=== PATIENT | male | born 1955 | race Caucasian/White ===

== ENCOUNTER 2018-07-19 07:29 | Day surgery (SDC) | payer OTHER, SELFPAY ==
[2018-07-19] VITALS (7 sets, daily range): BP systolic 87–151; BP diastolic 50–96; PULSE 51–63; RESP 12–18; TEMP 36.3–36.8; O2SAT 95–100; BMI 24.5
--- NOTE | 2018-07-19 08:17 | PCM.HP.STD ---
Problem List (1) Screening for intestinal cancer Status: Acute History of Present Illness Date of Admission: 07/19/18 The patient is a 62 year old M screening for intestinal cancer in the form of colonoscopy with possible biopsy or polypectomy. The patient enjoys good health. He denies any acute change of bowel habits. No bright red blood per rectum or melena. There is no family history of colon cancer or colon polyps. He has had a previous remote colonoscopy 11 years ago without acute findings. He is currently enjoying good health. Past Medical History Allergies No Known Allergies Allergy (Verified 07/15/18 14:45) Home Medications: Ambulatory Orders Medication Instructions Recorded Aspirin E.C. [Ecotrin] 81 mg PO DAILY@0800 10/17/13 Calcium Carbonate/Vitamin D3 1 each PO BID 10/17/13 [Calcium 600 + Vit D Tablet] [place]-3 Fatty Acids/Fish Oil [Fish 1 each PO DAILY 10/17/13 Oil 1,000 mg Capsule] Psyllium [Metamucil] 1 packet PO DAILY 10/17/13 Ramipril [Altace] 5 mg PO DAILY 10/17/13 Rosuvastatin Calcium [Crestor] 10 mg PO DAILY 10/17/13 Smoking Status: Never smoker Review of Systems Constitutional: Denies: Anorexia Eyes: Denies: Blurred vision Cardiovascular: Denies: Chest Pain, Claudication, Chest Pressure, Chest Tightness Respiratory: Denies: Cough, Shortness of Breath Gastrointestinal: Denies: Abdominal Pain, Constipation, Diarrhea Musculoskeletal: Denies: Leg Pain VTE Information - Inpt Only VTE Present on Admission: No Patient Problems: Active and Suspected Problems Screening for intestinal cancer (Acute) - Physical Exam General: Alert, Oriented x3, Cooperative, No apparent distress HEENT: Atraumatic Oral: Moist Mucosa Neck: Supple Lungs: Clear to auscultation Cardiovascular: Regular rate, Regular Rhythm Abdomen: Bowel Sounds Present, Soft, Non Tender Extremities: No clubbing Neurological: Cranial nerves II-XII grossly intact Vital Signs Temp Pulse Resp BP Pulse Ox 97.7 F L 63 12 127/85 H 99 07/19/18 08:05 07/19/18 08:05 07/19/18 08:05 07/19/18 08:05 07/19/18 08:05 Oxygen Delivery Method Room Air Weight: 166 lb Body Mass Index (BMI) 24.5 Assessment/Plan All Active Problems Screening for intestinal cancer (Acute) I plan to proceed with a colonoscopy with possible biopsy or polypectomy is indicated. He is aware of the technique, benefits, risks, alternatives. He has had an opportunity to ask and have questions answered. We will proceed at his discretion. Devaughn Jay M.D., F.A.C.S.
--- NOTE | 2018-07-19 08:30 | COLBX_PTH ---
PATIENT: BELINDA BUI LOC: EN U#:[id number] AGE/SX: 62/M ROOM: RE07/19/[address]: Dr. Devaughn Jay MD : 1955 BED: DIS: 07/19/2018 SPEC #: [id number] RECD: 07/19/18 09:59 STATUS: ANJEL BRI #: [id number] WOJCIECH: 07/19/18 08:[address]: Devaughn Jay DEPT: SURGICAL PATHOLOGY RECD BY: Flo Carty ENTERED: 07/19/18 12:26 SP TYPE: COLON BX OTHR DR: Dr. Gume Odonnell MD Tissues: A - Cecum, NOS B - Transverse colon C - Rectum, NOS Procedures: Surgery Specimen Level IV HEADER OPERATION: Colonoscopy ? open access (MOD) PRE-OP DIAGNOSIS: Screening TISSUE SUBMITTED: A ? Polyp cecum, B ? Biopsy of polyp proximal transverse, C ? Biopsy polyp rectum MICROSCOPIC DIAGNOSIS A. Cecal polyp, biopsy: Fragments of tubular adenoma. B. Proximal transverse colon polyp, biopsy: Fragments of tubular adenoma. C. Rectal polyp, biopsy: Fragments of tubular adenoma. AM:amara 07/20/18 MICROSCOPIC DESCRIPTION Slides are reviewed. GROSS DESCRIPTION A - Received in fixative is one container labeled with the patient's name and designated polyp cecum. The specimen consists of multiple irregular fragments of light pitts soft tissue that in aggregate measure 1 x 0.5 x 0.1 cm. The specimen is totally submitted in one cassette. B - Received in fixative is one container labeled with the patient's name and designated polyp transverse colon. The specimen consists of two irregular fragments of light pitts soft tissue that in aggregate measure 0.6 x 0.5 x 0.1 cm. The specimen is totally submitted in one cassette. C - Received in fixative is one container labeled with the patient's name and designated polyp rectum. The specimen consists of multiple irregular fragments of light pitts soft tissue that in aggregate measure 0.5 x 0.5 x 0.1 cm. The specimen is totally submitted in one cassette. / AM:amara 07/19/18 TC:5 CPT: 32481 x3
--- NOTE | 2018-07-19 08:50 | PCM.OPRPT ---
Problem List (1) Screening for intestinal cancer Status: Acute Report of Operation Date of Procedure: 07/19/18 Pre-Operative Diagnosis: Screening for intestinal cancer Post-Operative Diagnosis: Sessile polyp of the cecum. Sessile polyp of the proximal transverse colon. Sessile polyp of the rectum. Sigmoid diverticulosis Surgery/Procedure Performed:: Colonoscopy with hot snare polypectomy and cold forcep polypectomy Description of Surgical Findings:: Timeout and informed consent was obtained. 62-year-old gent was taken to the endoscopy suite. He was placed in a left lateral decubitus position. Throughout the procedure in aliquots he received total 100 mg term on 4.5 mg of Versed is intravenous sedation. Digital rectal exam performed. Normal anal tone. Mild hemorrhoidal findings. 2+ smooth prostate. No mass lesions. Flexible colonoscope inserted and advanced through a slightly tortuous sigmoid colon. The scope was advanced through the transverse colon which was rather long and lax. With transabdominal pressure and by placing the patient supine the scope was advanced to the cecum. Bowel prep was good. Cecum ileocecal valve area was nicely achieved. There was a sessile polyp on the antimesenteric border of the cecum. Hot snare was used to resect and retrieve this 1 cm diameter sessile polyp. Hemostasis was intact. The scope was then further withdrawn through the ascending colon and in the proximal transverse colon there was a diminutive 5 mm sessile polyp. I was not able to use a snare to eradicate that so I used cold forceps. Hemostasis again intact. The scope was further withdrawn. Minimal scattered diverticulosis identified. The scope was withdrawn to the descending and sigmoid colon were more diverticular disease was present but no evidence of acute inflammation. In the proximal rectum again there was a sessile 6 mm polyp. Benign appearance. Cold forceps were used to sample and eradicate this lesion. The scope was retroflexed and anorectal verge inspected some mild hemorrhoidal changes noted. Excess fluid and air was aspirated free the procedure was completed the patient tolerated it well. Impression Sessile polyps of the cecum and proximal transverse colon and rectum with pathology pending. Sigmoid diverticulosis. Pending pathology will recommend follow-up colonoscopy in 1-3 years The scope was inserted at 0826. The cecum was reached at 0832. The procedure was completed at 0845. Cc: Dr. Gume Jay M.D., F.A.C.S. Type of Anesthesia:: IV Sedation
== END 2018-07-19 09:40 | disposition home or self-care (01) ==
LOC: EN 07:37 → AC 07:44
PROVIDERS: Family Provider Family Medicine; PCP Family Medicine; Visit Provider Surgery
PROC: 0DJD8ZZ Inspection of Lower Intestinal Tract, Via Natural or Artificial Opening Endoscopic (ICD-10-PCS; CPT 45378; principal; 2018-07-19 08:25)
DX: Z12.11 Encounter for screening for malignant neoplasm of colon (principal); D12.0 Benign neoplasm of cecum; D12.3 Benign neoplasm of transverse colon; D12.8 Benign neoplasm of rectum; K57.30 Diverticulosis of large intestine without perforation or abscess without bleeding; K64.9 Unspecified hemorrhoids; Z79.82 Long term (current) use of aspirin; Z79.899 Other long term (current) drug therapy
CPT/HCPCS: 45380; 45385; 88305; 99152; 99153; J7120

== ENCOUNTER → 2018-08-01 11:14 | Outpatient (CLI) | payer OTHER, SELFPAY ==
[2018-08-01 13:26] LABS: ALB/GLOB Ratio 1.3 RATIO (0.9-2.4); AST(SGOT) 19 U/L (15-37); Alanine Aminotransfer ALT/SGPT 29 U/L (16-61); Albumin, Serum 4.1 g/dL (3.2-5.0); Alkaline Phosphatase 73 U/L (45-117); Anion Gap 11 (5-15); BUN 19 mg/dL (7-18); BUN/Creat Ratio 17.3 RATIO (10-20); Calcium,Total 8.9 mg/dL (8.5-10.1); Chloride 103 mmol/L (98-107); EST Glomerular Filtration Rate 72 mL/min (>60); Est Glom Filt Rate - Afr Amer 87 mL/min (>60); Globulin 3.2 g/dL (2.2-4.2); Glucose 74 mg/dL (74-106); PSA,Total - Annual Screen 1.07 ng/mL (0.00-4.00); Potassium 4.3 mmol/L (3.5-5.1); Protein, Total 7.3 g/dL (6.4-8.2); Sodium Level 142 mmol/L (136-145)
== END ==
PROVIDERS: Family Provider Family Medicine; PCP Family Medicine; Visit Provider Family Medicine
DX: I10 Essential (primary) hypertension (principal); N40.0 Benign prostatic hyperplasia without lower urinary tract symptoms
CPT/HCPCS: 36415; 80053; 84153; G0103

== ENCOUNTER → 2019-06-01 | Outpatient (CLI) | payer OTHER, SELFPAY ==
--- NOTE | 2019-06-01 07:31 | MRI_ITS ---
STUDY: MRI RIGHT KNEE REASON FOR EXAM: Male, 63 years old. TECHNIQUE: Standardized fat and water weighted pulse sequences were obtained in all 3 orthogonal planes. COMPARISON: None. FINDINGS: Meniscectomy change of the medial meniscus with maceration of the posterior horn with a suspected 3 cm trizonal flap tear extending to the inferior surface with a 4 mm cystic area within the posterior body which may represent a para meniscal cyst. Normal hyaline cartilage of the medial femorotibial compartment. Normal medial femoral condyle and tibial plateau. Associated medial capsulitis. Normal medial collateral ligamentous complex (MCL). Normal distal semimembranosus, gracilis and semitendinosus tendons. Normal lateral meniscus. Normal hyaline cartilage of the lateral femorotibial compartment. Normal lateral femoral condyle and tibial plateau. Normal proximal tibiofibular articulation. Normal lateral collateral (fibular) ligament. Normal popliteus tendon. Normal biceps femoris tendon. Normal anterior cruciate ligament (ACL). Normal posterior cruciate ligament (PCL). Normal congruent patellofemoral articulation. Normal hyaline cartilage of the patellofemoral compartment. Normal medial and lateral patellar retinaculum. Normal quadriceps tendon. Normal patellar tendon. Normal Hoffa's fat pad. There is a small volume joint effusion. The soft tissues are unremarkable. The otherwise visualized osseous structures are unremarkable. MRI/Lower Ext Joint Only (Routine) IMPRESSION: Meniscectomy change in the medial meniscus with maceration of the posterior horn with a 3 cm trizonal flap 3 tear extending to the inferior surface with a 4 mm parameniscal cyst either within or adjacent to the posterior body with medial capsulitis. However, the articular cartilage of the medial compartment is relatively preserved with no subchondral edema. Electronically Signed: Fermin Ortega MD at 9:47 EDT Tel , Service support ,
== END | disposition home or self-care (01) ==
LOC: MRI 07:17
PROVIDERS: Family Provider Family Medicine; PCP Family Medicine; Referring Provider Physician Assistant; Visit Provider Physician Assistant
DX: M25.561 Pain in right knee (principal)
CPT/HCPCS: 73721

== ENCOUNTER 2019-06-26 06:43 | Day surgery (SDC) | payer OTHER, SELFPAY ==
--- NOTE | 2019-06-15 07:15 | EKG12_ITS ---
Test Reason : PRE OP Blood Pressure : / mmHG Vent. Rate : 050 BPM Atrial Rate : 050 BPM P-R Int : 170 ms QRS Dur : 078 ms QT Int : 430 ms P-R-T Axes : 035 041 039 degrees QTc Int : 392 ms Sinus bradycardia Otherwise normal ECG When compared with ECG of 17-OCT-2013 13:01, No significant change was found Confirmed by CHIKI IRELAND, ERICKA ([id number]), business editor GWENDOLYN CARTER ([id number]) on 06/16/2019 9:44:13 AM Referred By: Tomy Linda Confirmed By:LÓPEZ MONET MD
[2019-06-15 07:25] LABS: Hematocrit 44.3 % (40-54); Hemoglobin 15.1 g/dL (13.0-16.5); Mean Corp Hgb Conc 34.1 g/dL (32-36); Mean Corpuscular Hgb 31.3 pg (27.0-32.0); Mean Corpuscular Volume 91.7 fL (80-94); Mean Platelet Vol. 9.4 fl (6.2-12.0); Platelet Count 207 K/mm3 (150-450); RBC Distribution Width CV 11.7 % (11.6-14.6); RBC Distribution Width SD 39.2 fl (35.1-43.9); Red Blood Count 4.83 M/mm3 (4.6-6.2); White Blood Count 5.9 K/mm3 (4.4-11.0)
[2019-06-15 07:43] LABS: Anion Gap 5 (5-15); BUN 20 mg/dL (7-18); BUN/Creat Ratio 17.5 RATIO (10-20); Calcium,Total 8.9 mg/dL (8.5-10.1); Chloride 105 mmol/L (98-107); Creatinine, Serum 1.14 mg/dL (0.70-1.30); EST Glomerular Filtration Rate 69 mL/min (>60); Est Glom Filt Rate - Afr Amer 84 mL/min (>60); Glucose 97 mg/dL (74-106); Potassium 4.3 mmol/L (3.5-5.1); Sodium Level 138 mmol/L (136-145)
[2019-06-26 08:11] VITALS: BP 141/75; PULSE 57; RESP 16; TEMP 36.8; O2SAT 99; BMI 26.6
[2019-06-26] MEDS: Cefazolin 2 GM in 0.9% Normal Saline 100 ML IV (10:35)
[2019-06-26] MEDS: Epinephrine (1 mg/ml) 1 MG/ML VIAL (11:11)
[2019-06-26] MEDS: Bupiv/Epi 0.25% 30 ML Vial (11:13)
--- NOTE | 2019-06-26 11:15 | OP.PCM_ITS ---
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 Procedure Description: The patient was greeted in the preoperative area. The [right ] knee was marked with surgical marker. Preoperative antibiotics were administered. The patient was then taken to the operating suite and placed in a supine position on operating room table. After adequate anesthesia was obtained and airway was secured a well-padded tourniquet was placed on patient's affected extremity. Leg was then prepped and draped in usual sterile fashion. Surgical timeout was performed and confirmed with all present and surgery was commenced. The anterolateral portal was established with a 15 blade scalpel and the diagnostic arthroscopy was begun. The patellofemoral joint was in good condition with focal grade 2 chondromalacia on the inferior pole of the patella. The medial compartment was entered and the medial portal was established. A probe was used to probe the medial meniscus. There was a multilayered tear of the posterior horn with an anteriorly based radial component. There was diffuse grade 2 chondromalacia of the medial femoral condyle. The ACL and PCL were probed and noted to be intact. The lateral compartment was entered and no pathology was noted. A partial medial meniscectomy was performed with straight and angled basket punches. The meniscal fragments were removed with a shaver and the shaver was used to shape and smooth the meniscus to a firm and stable rim. The shaver was then used to perform a chondroplasty on the MFC and the patella, removing any loose or delaminating cartilage. At this point all instruments were removed. Arthroscopic portals were closed in a standard fashion. 30 cc of 0.5% Marcaine was then injected into the knee. Well-padded nonadherent dressing was applied and secured with an Baldo wrap. The patient was taken to the recovery room in stable condition. Type of Anesthesia:: General Anesthesiologist: Jose Plascencia - Admit VTE Documentation VTE Present on Admission: No VTE Mechan Device Prophylaxis: SCD's, Thigh High BERNARD Hose VTE Pharm Prophylaxis ordered?: No Reason prophylaxis not ordered:: Treatment Not Indicated
[2019-06-26 11:26] VITALS: BP 136/69; BP 141/75; PULSE 71; RESP 16; TEMP 36.3; O2SAT 99
[2019-06-26 11:30] VITALS: BP 124/61; BP 141/75; PULSE 69; RESP 16; O2SAT 94
[2019-06-26 11:45] VITALS: BP 110/75; BP 141/75; PULSE 77; RESP 16; O2SAT 100
[2019-06-26] MEDS: HYDROcodone Bitartrate/Apap 5/325 Tablet PO (11:53)
[2019-06-26 12:02] VITALS: BP 141/75; PULSE 72; RESP 16; TEMP 36.1; O2SAT 96
[2019-06-26 12:54] VITALS: BP 141/75
== END 2019-06-26 13:05 | disposition home or self-care (01) ==
LOC: SDC 06:44 → AC 06:45
PROVIDERS: Family Provider Family Medicine; PCP Family Medicine; Referring Provider Orthopaedic Surgery; Visit Provider Orthopaedic Surgery
PROC: (CPT 29870; principal; 2019-06-26 09:30)
DX: S83.241A Other tear of medial meniscus, current injury, right knee, initial encounter (principal); X58.XXXA Exposure to other specified factors, initial encounter; Y92.9 Unspecified place or not applicable; I10 Essential (primary) hypertension; Z79.899 Other long term (current) drug therapy; Z79.82 Long term (current) use of aspirin; E78.00 Pure hypercholesterolemia, unspecified; R00.1 Bradycardia, unspecified
CPT/HCPCS: 29881; 36415; 80048; 85027; 93005; J7120; J2405

== ENCOUNTER → 2019-08-17 09:38 | Outpatient (CLI) | payer OTHER, SELFPAY ==
[2019-08-17 12:35] LABS: Vitamin D,25 Hydroxy 24.3 ng/mL (29.95-100.01)
[2019-08-17 12:43] LABS: ALB/GLOB Ratio 1.1 RATIO (0.9-2.4); AST(SGOT) 16 U/L (15-37); Alanine Aminotransfer ALT/SGPT 22 U/L (16-61); Alkaline Phosphatase 91 U/L (45-117); Anion Gap 8 (5-15); BUN 23 mg/dL (7-18); BUN/Creat Ratio 20.2 RATIO (10-20); Calcium,Total 8.9 mg/dL (8.5-10.1); Chloride 102 mmol/L (98-107); Creatinine, Serum 1.14 mg/dL (0.70-1.30); EST Glomerular Filtration Rate 69 mL/min (>60); Est Glom Filt Rate - Afr Amer 84 mL/min (>60); Globulin 3.5 g/dL (2.2-4.2); Glucose 71 mg/dL (74-106); PSA,Total - Annual Screen 1.01 ng/mL (0.00-4.00); Potassium 4.2 mmol/L (3.5-5.1); Protein, Total 7.5 g/dL (6.4-8.2); Sodium Level 135 mmol/L (136-145)
== END ==
PROVIDERS: Family Provider Family Medicine; PCP Family Medicine; Referring Provider Family Medicine; Visit Provider Family Medicine
DX: Z00.00 Encounter for general adult medical examination without abnormal findings (principal); E55.9 Vitamin D deficiency, unspecified; N40.0 Benign prostatic hyperplasia without lower urinary tract symptoms; I10 Essential (primary) hypertension
CPT/HCPCS: 36415; 80053; 82306; 84153; G0103

== ENCOUNTER 2019-11-07 07:17 | Day surgery (SDC) | payer OTHER, SELFPAY ==
[2019-11-07] VITALS (7 sets, daily range): BP systolic 100–153; BP diastolic 70–99; PULSE 60–69; RESP 16; TEMP 36.4–36.8; O2SAT 98–100; BMI 27.0
[2019-11-07] MEDS: Lactated Ringers 1,000 ML 100 ML IV (07:59)
--- NOTE | 2019-11-07 08:41 | PCM.HP.STD ---
Problem List (1) Personal history of colonic polyps Status: Acute History of Present Illness Date of Admission: 11/07/19 The patient is a 64 year old M presents for a colonoscopy. He presents via our open access program. He has a personal history of colon polyps. June 2018 I performed a colonoscopy form and there were multiple polyps of the cecum and the ascending colon. Pathology demonstrates that these were tubular adenomas. Over the past year he has had stable health. He denies chest pain denies abdominal pain no change in bowel habits. Past Medical History Allergies No Known Allergies Allergy (Verified 11/07/19 07:40) Home Medications: Ambulatory Orders Medication Instructions Recorded Psyllium [Metamucil] 1 packet PO DAILY 10/17/13 Ramipril [Altace] 5 mg PO DAILY 10/17/13 Rosuvastatin Calcium [Crestor] 10 mg PO DAILY 10/17/13 Cholecalciferol (Vitamin D3) 2,000 unit PO DAILY 11/06/19 [Vitamin D3] Smoking Status: Never smoker Tobacco Use: Non-smoker Review of Systems HEENT: Denies: Difficulty Swallowing Cardiovascular: Denies: Chest Pain Gastrointestinal: Denies: Abdominal Pain, Melena Endocrine: Denies: Change in Body Habitus VTE Information - Inpt Only VTE Present on Admission: No Patient Problems: Active and Suspected Problems Personal history of colonic polyps (Acute) - Physical Exam Vitals/I&O's: Vital Signs Temp Pulse Resp BP Pulse Ox 97.6 F L 66 16 153/82 H 98 11/07/19 07:42 11/07/19 07:42 11/07/19 07:42 11/07/19 07:42 11/07/19 07:42 Oxygen Delivery Method Room Air Weight: 183 lb Body Mass Index (BMI) 27.0 General: Alert, Oriented x3, Cooperative, No apparent distress Oral: Moist Mucosa Lungs: Clear to auscultation, Normal air movement Cardiovascular: Regular rate, Regular Rhythm Abdomen: Bowel Sounds Present, Soft, Non Tender Current Medications Lactated Ringer's () 1,000 mls @ 100 mls/hr IV .Q10H BALA Last Admin: 11/07/19 07:59 Dose: 100 mls/hr Documented by: Assessment/Plan All Active Problems Screening for intestinal cancer (Acute) Personal history of colonic polyps (Acute) Personal history of colon polyps. We will proceed with a colonoscopy with possible biopsy or polypectomy is indicated. He is aware of the technique, benefit, risks, alternatives. He has had an opportunity to ask and have questions answered. He presents via open access. We will proceed as noted. Devaughn Jay M.D., F.A.C.S.
--- NOTE | 2019-11-07 09:06 | OP.COLON_ITS ---
Patient Name: Travis Cerna Procedure Date: 11/07/2019 8:38 AM Date of : 1955 Age: 64 Procedure: Colonoscopy Indications: High risk colon cancer surveillance: Personal history of colonic polyps Providers: Devaughn Jay MD Referring MD: Venkata Odonnell Medicines: See the Anesthesia note for documentation of the administered medications Patient Profile: Last Colonoscopy: 1 year ago. Complications: No immediate complications. Procedure: Pre-Anesthesia Assessment: - Prior to the procedure, a History and Physical was performed, and patient medications and allergies were reviewed. The patient's tolerance of previous anesthesia was also reviewed. The risks and benefits of the procedure and the sedation options and risks were discussed with the patient. All questions were answered, and informed consent was obtained. Prior Anticoagulants: The patient has taken no previous anticoagulant or antiplatelet agents. ASA Grade Assessment: II - A patient with mild systemic disease. After reviewing the risks and benefits, the patient was deemed in satisfactory condition to undergo the procedure. After I obtained informed consent, the scope was passed under direct vision. Throughout the procedure, the patient's blood pressure, pulse, and oxygen saturations were monitored continuously. The Colonoscope was introduced through the anus and advanced to the cecum, identified by appendiceal orifice and ileocecal valve. The colonoscopy was performed without difficulty. The patient tolerated the procedure well. The quality of the bowel preparation was good. Scope In: 8:48:13 AM Scope Withdrawal Time 0 hours 6 minutes 49 seconds Scope Out: 8:59:34 AM Total Procedure Duration Time 0 hours 11 minutes 21 seconds Findings: The digital rectal exam findings include non-thrombosed external hemorrhoids, non-thrombosed internal hemorrhoids and internal hemorrhoids that prolapse with straining, but spontaneously regress to the resting position (Grade II). Multiple diverticula were found in the sigmoid colon. Impression: - Non-thrombosed external hemorrhoids, non-thrombosed internal hemorrhoids and internal hemorrhoids that prolapse with straining, but spontaneously regress to the resting position (Grade II) found on digital rectal exam. Normal prostate on palpation - Diverticulosis in the sigmoid colon. - No specimens collected. Recommendation: - Discharge patient to home. - Resume previous diet. - Continue present medications. - Repeat colonoscopy in 5 years for surveillance. Procedure Code(s): --- Professional --- 28220, Colonoscopy, flexible; diagnostic, including collection of specimen(s) by brushing or washing, when performed (separate procedure) Diagnosis Code(s): --- Professional --- Z86.010, Personal history of colonic polyps K64.1, Second degree hemorrhoids K64.4, Residual hemorrhoidal skin tags K57.30, Diverticulosis of large intestine without perforation or abscess without bleeding CPT copyright 2017 [employer]. All rights reserved. The codes documented in this report are preliminary and upon certified procedural coder review may be revised to meet current compliance requirements. Devaughn Jay MD 11/07/2019 9:06:04 AM This report has been signed electronically. Number of Addenda: 0 Note Initiated On: 11/07/2019 8:38 AM
== END 2019-11-07 09:42 | disposition home or self-care (01) ==
LOC: EN 07:19 → AC 07:21
PROVIDERS: Family Provider Family Medicine; PCP Family Medicine; Referring Provider Family Medicine; Visit Provider Surgery
PROC: 0DJD8ZZ Inspection of Lower Intestinal Tract, Via Natural or Artificial Opening Endoscopic (ICD-10-PCS; CPT 45378; principal; 2019-11-07 08:25)
DX: Z12.11 Encounter for screening for malignant neoplasm of colon (principal); K57.30 Diverticulosis of large intestine without perforation or abscess without bleeding; K64.1 Second degree hemorrhoids; K64.4 Residual hemorrhoidal skin tags; Z86.010 Personal history of colon polyps; I10 Essential (primary) hypertension; E78.00 Pure hypercholesterolemia, unspecified; Z79.899 Other long term (current) drug therapy
CPT/HCPCS: 45378; J7120

== ENCOUNTER → 2020-08-19 10:37 | Outpatient (CLI) | payer OTHER, SELFPAY ==
[2019-11-07 07:42] VITALS: BMI 27.0
[2020-08-19 12:46] LABS: Vitamin D,25 Hydroxy 44.9 ng/mL
[2020-08-19 13:18] LABS: ALB/GLOB Ratio 1.4 RATIO (0.9-2.4); AST(SGOT) 25 U/L (15-37); Alanine Aminotransfer ALT/SGPT 29 U/L (16-61); Albumin, Serum 4.2 g/dL (3.2-5.0); Alkaline Phosphatase 72 U/L (45-117); Anion Gap 6 (5-15); BUN 21 mg/dL (7-18); BUN/Creat Ratio 18.1 RATIO (10-20); Calcium,Total 8.9 mg/dL (8.5-10.1); Chloride 105 mmol/L (98-107); Creatinine, Serum 1.16 mg/dL (0.70-1.30); EST Glomerular Filtration Rate 67 mL/min (>60); Est Glom Filt Rate - Afr Amer 82 mL/min (>60); Globulin 3.1 g/dL (2.2-4.2); Glucose 78 mg/dL (74-106); PSA,Total - Annual Screen 0.95 ng/mL (0.00-4.00); Potassium 4.5 mmol/L (3.5-5.1); Protein, Total 7.3 g/dL (6.4-8.2); Sodium Level 139 mmol/L (136-145)
== END ==
PROVIDERS: PCP Family Medicine; Visit Provider Family Medicine
DX: E78.5 Hyperlipidemia, unspecified (principal); E55.9 Vitamin D deficiency, unspecified; N40.0 Benign prostatic hyperplasia without lower urinary tract symptoms
CPT/HCPCS: 36415; 80053; 82306; 84153; G0103

== ENCOUNTER → 2021-08-21 09:44 | Outpatient (CLI) | payer OTHER, SELFPAY ==
[2021-08-21 12:54] LABS: Vitamin D,25 Hydroxy 38.9 ng/mL
[2021-08-21 13:03] LABS: AST(SGOT) 21 U/L (15-37); Alanine Aminotransfer ALT/SGPT 36 U/L (16-61); Alkaline Phosphatase 78 U/L (45-117); Anion Gap 8 (5-15); BUN 20 mg/dL (7-18); BUN/Creat Ratio 18.9 RATIO (10-20); Chloride 104 mmol/L (98-107); Cholesterol 144 mg/dL (200); Creatinine, Serum 1.06 mg/dL (0.70-1.30); EST Glomerular Filtration Rate 75 mL/min (>60); Est Glom Filt Rate - Afr Amer 90 mL/min (>60); Glucose 83 mg/dL (74-106); High Density Lipoprotein 30 mg/dL; Potassium 4.3 mmol/L (3.5-5.1); Sodium Level 137 mmol/L (136-145); Triglycerides 183 mg/dL; Very Low Density Lipoprotein 37 mg/dL (5-40)
== END ==
PROVIDERS: PCP Family Medicine; Referring Provider Family Medicine; Visit Provider Family Medicine
DX: E78.5 Hyperlipidemia, unspecified (principal); N40.0 Benign prostatic hyperplasia without lower urinary tract symptoms; E55.9 Vitamin D deficiency, unspecified
CPT/HCPCS: 36415; 80053; 80061; 82306; 84153; G0103

== ENCOUNTER → 2022-08-25 | Outpatient (CLI) | payer OTHER, SELFPAY ==
[2022-08-25 12:18] LABS: Bacteria 0 SEEN /hpf (None Seen); Red Blood Cells-Urine 0 SEEN /hpf (0-5); Squamous Epithelial Cells - UA 0 SEEN /hpf (0-5); White Blood Cells 0 SEEN /hpf (0-5)
[2022-08-25 12:24] LABS: Vitamin D,25 Hydroxy 38.6 ng/mL
[2022-08-25 12:27] LABS: ALB/GLOB Ratio 1.2 RATIO (0.9-2.4); AST(SGOT) 19 U/L (15-37); Alanine Aminotransfer ALT/SGPT 31 U/L (16-61); Albumin, Serum 4.2 g/dL (3.2-5.0); Alkaline Phosphatase 80 U/L (45-117); Anion Gap 7 (5-15); BUN 21 mg/dL (7-18); BUN/Creat Ratio 16.7 RATIO (10-20); Calcium,Total 9.3 mg/dL (8.5-10.1); Chloride 105 mmol/L (98-107); Cholesterol 171 mg/dL (200); Creatinine, Serum 1.26 mg/dL (0.70-1.30); EST Glomerular Filtration Rate 61 mL/min (>60); Est Glom Filt Rate - Afr Amer 74 mL/min (>60); Globulin 3.5 g/dL (2.2-4.2); Glucose 79 mg/dL (74-106); High Density Lipoprotein 39 mg/dL; Potassium 4.7 mmol/L (3.5-5.1); Protein, Total 7.7 g/dL (6.4-8.2); Sodium Level 140 mmol/L (136-145); Triglycerides 135 mg/dL; Very Low Density Lipoprotein 27 mg/dL (5-40)
[2022-08-25 12:34] LABS: Color, Urine Yellow (Yellow); Glucose, Dipstick Normal (Normal); Ketone-Dipstick 150 mg/dl (Negative); Leukocyte Esterase-Dipstick Negative /ul (Negative); Nitrite-Dipstick Negative (Negative); Occult Blood-Urine Negative /ul (Negative); Protein-Dipstick 15 mg/dl (Negative); Specific Gravity, Urine 1.025 (1.002-1.030); Urine Bilirubin Dipstick Negative (Negative); Urine Clarity Sl. Cloudy (Clear); Urine Urobilinogen Normal (Normal)
[2022-08-25 12:49] LABS: Mucous, Urine 2+ /hpf (<or=2+)
[2022-08-25 12:50] LABS: Hyaline Cast 0-5 SEEN /lpf (0-5)
== END | disposition home or self-care (01) ==
PROVIDERS: PCP Family Medicine; Referring Provider Family Medicine; Visit Provider Family Medicine
DX: I10 Essential (primary) hypertension (principal); E55.9 Vitamin D deficiency, unspecified; N40.0 Benign prostatic hyperplasia without lower urinary tract symptoms; E78.5 Hyperlipidemia, unspecified; Z12.5 Encounter for screening for malignant neoplasm of prostate
CPT/HCPCS: 36415; 80053; 80061; 81001; 82306; 84153; G0103

== ENCOUNTER → 2023-10-05 | Outpatient (CLI) | payer OTHER, SELFPAY ==
[2023-10-05 13:10] LABS: Vitamin D,25 Hydroxy 34.9 ng/mL
[2023-10-05 13:43] LABS: ALB/GLOB Ratio 1.2 RATIO (0.9-2.4); AST(SGOT) 23 U/L (15-37); Alanine Aminotransfer ALT/SGPT 27 U/L (16-61); Alkaline Phosphatase 80 U/L (45-117); Anion Gap 10 (5-15); BUN 15 mg/dL (7-18); BUN/Creat Ratio 14.3 RATIO (10-20); Calcium,Total 8.6 mg/dL (8.5-10.1); Chloride 104 mmol/L (98-107); Cholesterol 160 mg/dL (200); Creatinine, Serum 1.05 mg/dL (0.70-1.30); EST Glomerular Filtration Rate 75 mL/min (>60); Est Glom Filt Rate - Afr Amer 91 mL/min (>60); Globulin 3.3 g/dL (2.2-4.2); Glucose 86 mg/dL (74-106); High Density Lipoprotein 43 mg/dL; PSA,Total - Annual Screen 1.35 ng/mL (0.00-4.00); Potassium 3.9 mmol/L (3.5-5.1); Protein, Total 7.3 g/dL (6.4-8.2); Sodium Level 137 mmol/L (136-145); Triglycerides 74 mg/dL; Very Low Density Lipoprotein 15 mg/dL (5-40)
== END | disposition home or self-care (01) ==
LOC: MFPLAB 10:00
PROVIDERS: PCP Family Medicine; Visit Provider Family Medicine
DX: E78.5 Hyperlipidemia, unspecified (principal); N40.0 Benign prostatic hyperplasia without lower urinary tract symptoms; E55.9 Vitamin D deficiency, unspecified
CPT/HCPCS: 36415; 80053; 80061; 82306; 84153; G0103

== ENCOUNTER → 2024-10-09 | Outpatient (CLI) | payer OTHER, SELFPAY ==
[2024-10-09 15:47] LABS: ALB/GLOB Ratio 1.3 RATIO (0.9-2.4); AST(SGOT) 18 U/L (15-37); Alanine Aminotransfer ALT/SGPT 24 U/L (16-61); Albumin, Serum 4.2 g/dL (3.2-5.0); Alkaline Phosphatase 88 U/L (45-117); Anion Gap 8 (5-15); BUN 17 mg/dL (7-18); BUN/Creat Ratio 16.5 RATIO (10-20); Calcium,Total 9.3 mg/dL (8.5-10.1); Chloride 105 mmol/L (98-107); Cholesterol 159 mg/dL (200); Creatinine, Serum 1.03 mg/dL (0.70-1.30); EST Glomerular Filtration Rate 76 mL/min (>60); Est Glom Filt Rate - Afr Amer 92 mL/min (>60); Globulin 3.3 g/dL (2.2-4.2); Glucose 76 mg/dL (74-106); High Density Lipoprotein 42 mg/dL; PSA,Total - Annual Screen 1.46 ng/mL (0.00-4.00); Potassium 4.1 mmol/L (3.5-5.1); Protein, Total 7.5 g/dL (6.4-8.2); Sodium Level 137 mmol/L (136-145); Triglycerides 87 mg/dL; Very Low Density Lipoprotein 17 mg/dL (5-40)
== END | disposition home or self-care (01) ==
LOC: MFPLAB 11:35
PROVIDERS: PCP Family Medicine; Visit Provider Family Medicine
DX: E78.5 Hyperlipidemia, unspecified (principal); Z12.5 Encounter for screening for malignant neoplasm of prostate
CPT/HCPCS: 36415; 80053; 80061; 84153; G0103

== ENCOUNTER 2025-01-29 08:14 | Day surgery (SDC) | payer OTHER, SELFPAY ==
[2025-01-29] VITALS (9 sets, daily range): BP systolic 98–144; BP diastolic 61–77; PULSE 18–65; RESP 16–18; TEMP 36.3–37.2; O2SAT 95–99; BMI 28.5
--- NOTE | 2025-01-29 08:29 | PCM.HP.STD ---
[facility] - General General Date of Admission: 01/29/25 Date of Service: 01/29/25 Chief Complaint: Screening colonoscopy HPI Kaya BUI, is a 69 M who presents today for surveillance colonoscopy. He has a personal history of polyps. His last colonoscopy was in 2019. [facility] Medical History Wears glasses Alcohol use High cholesterol Non-smoker Chronic cough History of edema HTN (hypertension) Home Medications ?Medication ?Instructions ?Recorded ?Last Taken ?Type psyllium husk (aspartame) 3.4 gram 1 packet PO DAILY 10/17/13 Unknown History oral powder packet (Metamucil Fiber Singles) ramipril 5 mg capsule 5 mg PO DAILY 10/17/13 11/07/19 History rosuvastatin 10 mg tablet 10 mg PO DAILY 10/17/13 Unknown History cholecalciferol (vitamin D3) 50 2,000 unit PO DAILY 11/06/19 Unknown History mcg (2,000 unit) capsule amlodipine 10 mg tablet 10 mg PO QDAY 12/06/24 Unknown History omega-3 fatty acids 1,000 mg 1,000 mg PO QDAY 12/06/24 Unknown History capsule ([place]-3) Allergy/AdvReac Type Severity Reaction Status Date / Time No Known Allergies Allergy Verified 12/06/24 12:49 Surgical History History of carpal tunnel release of both wrists History of arthroscopic knee surgery Hx of colonoscopy Social History household members: spouse current occupational status: employed Smoking Status: Never smoker substance use type: does not use ROS Constitutional Constitutional: Denies fatigue, fever(s), poor appetite, weight gain or weight loss Gastrointestinal Gastrointestinal: Denies belching, bloating, change in bowel habits, change in stool character, chewing difficulty, coffee ground emesis, constipation, cramping, diarrhea, dyspepsia, dysphagia, early satiety, excessive flatus, fecal incontinence, heartburn, hematemesis, hematochezia, hemorrhoids, loose stools, melena, nausea, odynophagia, rectal bleeding, tenesmus, vomiting or weight changes Physical Exam Const alert, oriented x3, no apparent distress and healthy appearing General Appearance: cooperative GI normal to inspection, nondistended, normoactive bowel sounds, soft to palpation, non-tender and non-distended Percussion: normal to percussion Rectal Exam: deferred Assessment & Plan Assessment/Plan (1) Personal history of colonic polyps: PLAN: He was explained alternatives, risk and benefits given understanding bleeding, infection, sepsis, perforation, need emergent urgent . He will have an ASA of 3.
--- NOTE | 2025-01-29 08:38 | PCM.PRE.AN2 ---
ASA Classification* ASA Classification ASA Classification: 2 Assessment & Plan Anesthesia* Anesthesia Assessment Anesthesia Assessment: Discussed sedation and/or anesthesia options, risks, benefits, and alternatives with patient/parents/legal guardian/POA. Questions invited. The patient/parents/legal guardian/POA seems to understand and agrees to proceed with anesthesia plan. Reviewed the physical assessment, medical history, allergy history and patient home medications list prior to surgery/procedure/anesthetic and documented any changes. Performed airway and anesthesia risk assessments. Anesthesia Type Anesthesia Type: MAC Anesthesia Focused Assessment* Temperature: 98.0 F Pulse Rate: 65 Blood Pressure: 144/77 Respiratory Rate: 18 Pulse Ox: 99 Airway Assessment Mouth opens: >3 cm Mallampati Score: II Focused Labs Anesthesia Preop lab: CBC WBC 5.9 K/mm3 (4.4-11.0) 06/15/19 07:09 06/15/19 RBC 4.83 M/mm3 (4.6-6.2) 06/15/19 07:09 06/15/19 Hgb 15.1 g/dL (13.0-16.5) 06/15/19 07:09 06/15/19 Hct 44.3 % (40-54) 06/15/19 07:09 06/15/19 Plt Count 207 K/mm3 (150-450) 06/15/19 07:09 06/15/19 CHEMISTRY Potassium 4.1 mmol/L (3.5-5.1) 10/09/24 11:37 10/09/24 Sodium 137 mmol/L (136-145) 10/09/24 11:37 10/09/24 BUN 17 mg/dL (7-18) 10/09/24 11:37 10/09/24 Creatinine 1.03 mg/dL (0.70-1.30) 10/09/24 11:37 10/09/24 Glucose 76 mg/dL (74-106) 10/09/24 11:37 10/09/24 COAG Pre-Assessment Diagnosis/Proposed Procedure Planned Operative Procedure(s): COLONOSCOPY Anesthesia History Anesthesia History - safety investigator: Anesthesia History - safety investigator Hx Hospitalization No 01/26/25 09:05 Any Problems With Anesthesia No 01/26/25 09:05 Cholinesterase deficiency No 01/26/25 09:05 You/Your Family Experience No 01/26/25 09:05 fever (hyperthermia) with Relationship Recent Exposure to Contagious No 01/29/25 08:32 Disease Does patient have nerve No 01/26/25 09:05 stimulator Patient instructed to have device shut off --Does patient have Pacemaker No 01/29/25 08:32 or ICD? When Was Last Pacemaker Check QUESTION #4 FULL TEXT: You/Your Family Experience fever (hyperthermia) with Anesthesia Last Oral Intake Last Oral intake: Last Oral Intake NPO since 03:30 01/29/25 08:32 Meds taken in AM with sips of water? Meds patient instructed to take am of surgery PONV PONV - safety investigator: PONV - safety investigator Female No 01/26/25 09:05 HX of Motion Sickness No 01/26/25 09:05 HX of N/V After Surgery No 01/26/25 09:05 Non-Smoker Yes 01/26/25 09:05 Duration of Surgery greater No 01/26/25 09:05 than 60 minutes Number of Risk Factors 1 01/26/25 09:05 PONV Score Low Risk 01/26/25 09:05 Height & Weight Height & Weight: Anesthesia: Height & Weight Height 5 ft 8 in 01/29/25 08:32 Weight: 85 kg 01/29/25 08:32 Body Mass Index (BMI) 28.5 01/29/25 08:32 Respiratory Assessment Respiratory Assessment - safety investigator: Respiratory Tract Infection Hx - safety investigator Hx Respiratory Tract Infection No 01/26/25 09:05 STOP Sleep Apnea STOP Sleep Apnea - safety investigator: STOP Sleep Apnea - safety investigator Hx Hypertension Yes 01/26/25 09:05 Hx Sleep Apnea No 01/26/25 09:05 CPAP No 11/07/19 09:03 BIPAP No 11/06/19 10:53 Do you snore loudly (louder No 01/26/25 09:05 than talking or can be heard Do you often feel tired/ No 01/26/25 09:05 fatigued/ sleepy during daytime? Has anyone observed you stop No 01/26/25 09:05 breathing during sleep? STOP Results Negative 01/26/25 09:05 QUESTION #5 FULL TEXT : Do you snore loudly (louder than talking or can be heard through closed doors)? Tobacco Use History Tobacco Use History - safety investigator: Tobacco Use History - safety investigator Tobacco Use Smoking Status Never smoker 01/26/25 09:05 Hx Tobacco Use No 01/26/25 09:05 Years Smoking Packs Smoked per Day Smoking Cessation Date was within the last 15 years Hx Smoking Cessation Date Hx Smoking Cessation Counseling Hematologic Medial History Hematologic Hx - safety investigator: Hematologic Medical Hx - poultry trimmer Hx of Blood Transfusion No 01/26/25 09:05 Hx of Transfusion in last 3 No 01/26/25 09:05 Months Date of Last Transfusion (if within last 3 months) Ever experience any problems No 01/26/25 09:05 with transfusion(s)? Specify any problems Hx of Preganancy in last 3 N/A 01/26/25 09:05 Months Nurse Filling Out Transfusion VLEHMAN 01/26/25 09:05 & Questions: Date: 01/26/25 01/26/25 09:05 Time: 09:01/26/25 09:05 Patient unable to answer at this time (ie. confused, unrespo /Reproduction History /Reproductive History - safety investigator: /Reproductive Hx- safety investigator Hx Now Gestational Age (in weeks): EDC: Hx Hx Para Hx Section SAB PFSH Medical History Wears glasses Alcohol use High cholesterol Non-smoker Chronic cough History of edema HTN (hypertension) Home Medications ?Medication ?Instructions ?Recorded ?Last Taken ?Type psyllium husk (aspartame) 3.4 gram 1 packet PO DAILY 10/17/13 01/26/25 History oral powder packet (Metamucil Fiber Singles) ramipril 5 mg capsule 5 mg PO DAILY 10/17/13 01/28/25 History rosuvastatin 10 mg tablet 10 mg PO DAILY 10/17/13 01/28/25 History cholecalciferol (vitamin D3) 50 2,000 unit PO DAILY 11/06/19 01/28/25 History mcg (2,000 unit) capsule amlodipine 10 mg tablet 10 mg PO QDAY 12/06/24 01/29/25 History omega-3 fatty acids 1,000 mg 1,000 mg PO QDAY 12/06/24 01/26/25 History capsule (Super [place]-3) Allergy/AdvReac Type Severity Reaction Status Date / Time No Known Allergies Allergy Verified 01/29/25 08:31 Surgical History History of carpal tunnel release of both wrists History of arthroscopic knee surgery Hx of colonoscopy Social History household members: spouse current occupational status: employed Smoking Status: Never smoker substance use type: does not use Review of Systems (Anesthesia) ROS Narrative System reviewed and no additional complaints, except as documented.
--- NOTE | 2025-01-29 09:15 | EGD_PTH ---
PATIENT: BELINDA BUI LOC: EN U#:[id number] AGE/SX: 69/M ROOM: RE01/29/[address]: Dr. Marcelo Epps DO : 1955 BED: DIS: 01/29/2025 SPEC #: [id number] RECD: 01/29/25 11:25 STATUS: ANJEL REXenia #: [id number] WOJCIECH: 01/29/25 09:[address]: Marcelo Epps DEPT: SURGICAL PATHOLOGY RECD BY: Claudy Rossi ENTERED: 01/29/25 11:27 SP TYPE: EGD BIOPSY AAMIR DR: Dr. Gume Odonnell MD Tissues: A - SPLENIC FLEXURE B - COLON BIOPSY Procedures: Surgery Specimen Level IV HEADER OPERATION: Colonoscopy with biopsy PRE-OP DIAGNOSIS: Personal history of colonic polyps TISSUE SUBMITTED: A- Splenic flexure polyp biopsy, B- Hepatic flexure polyp biopsy MICROSCOPIC DIAGNOSIS A: COLON POLYP AT SPLENIC FLEXURE, BIOPSY: * Tubular adenoma. B: COLON POLYP AT HEPATIC FLEXURE, BIOPSY: * Tubular adenoma. MICROSCOPIC DESCRIPTION Slides are reviewed. GROSS DESCRIPTION A. Received in fixative is one container labeled with the patient's name and designated Splenic flexure polyp biopsy. The specimen consists of multiple irregular fragments of light pitts soft tissue that in aggregate measure 1.4 x 0.4 x 0.2 cm. The specimen is totally submitted in one cassette. B. Received in fixative is one container labeled with the patient's name and designated Hepatic flexure polyp biopsy. The specimen consists of two irregular fragments of light pitts soft tissue that in aggregate measure 0.8 x 0.3 x 0.2 cm. The specimen is totally submitted in one cassette. MS/mr 01/29/2025 CPT:49853l7
--- NOTE | 2025-01-29 09:46 | OP.CCLET_ITS ---
01/29/2025 Venkata Odonnell [address] [place] [address] Re : Colonoscopy procedure for Travis Cerna Dear Dr. Odonnell This procedure was performed on Wednesday, January 29, 2025. My impressions and recommendations are as follows: Impressions : - Four 8 mm polyps at the splenic flexure and at the hepatic flexure, removed with a jumbo cold forceps. Resected and retrieved. - Diverticulosis in the recto-sigmoid colon, in the sigmoid colon and in the descending colon. - The examination was otherwise normal on direct and retroflexion views. Recommendations : - Discharge patient to home. - Resume previous diet. - Continue present medications. - Await pathology results. - Repeat colonoscopy in 5 years for surveillance. My findings are described in the full procedure note, which is enclosed. If I can be of further assistance, please feel free to contact me at . Sincerely, Marcelo Epps, 01/29/2025 9:45:59 AM This report has been signed electronically.
--- NOTE | 2025-01-29 09:46 | OP.COLON_ITS ---
Patient Name: Travis Cerna Procedure Date: 01/29/2025 9:21 AM Date of : 1955 Age: 69 Procedure: Colonoscopy Indications: High risk colon cancer surveillance: Personal history of colonic polyps Providers: Marcelo Epps DO Referring MD: Marcelo Epps DO Medicines: Monitored Anesthesia Care Patient Profile: This is a 69 year old male. Refer to note in patient chart for documentation of history and physical. Last Colonoscopy: 5 years ago. Complications: No immediate complications. Procedure: Pre-Anesthesia Assessment: - Prior to the procedure, a History and Physical was performed, and patient medications and allergies were reviewed. The patient is competent. The risks and benefits of the procedure and the sedation options and risks were discussed with the patient. All questions were answered and informed consent was obtained. Patient identification and proposed procedure were verified by the physician in the pre-procedure area. Mental Status Examination: alert and oriented. Airway Examination: normal oropharyngeal airway and neck mobility. Respiratory Examination: clear to auscultation. CV Examination: normal. Prophylactic Antibiotics: The patient does not require prophylactic antibiotics. Prior Anticoagulants: The patient has taken no anticoagulant or antiplatelet agents except for NSAID medication. ASA Grade Assessment: II - A patient with mild systemic disease. After reviewing the risks and benefits, the patient was deemed in satisfactory condition to undergo the procedure. The anesthesia plan was to use monitored anesthesia care (MAC). Immediately prior to administration of medications, the patient was re-assessed for adequacy to receive sedatives. The heart rate, respiratory rate, oxygen saturations, blood pressure, adequacy of pulmonary ventilation, and response to care were monitored throughout the procedure. The physical status of the patient was re-assessed after the procedure. After I obtained informed consent, the scope was passed under direct vision. Throughout the procedure, the patient's blood pressure, pulse, and oxygen saturations were monitored continuously. The adult colonoscope was introduced through the anus and advanced to the cecum, identified by appendiceal orifice and ileocecal valve. The colonoscopy was performed without difficulty. The patient tolerated the procedure well. The quality of the bowel preparation was adequate. Scope In: 9:28:14 AM Scope Withdrawal Time 0 hours 4 minutes 59 seconds Scope Out: 9:39:37 AM Total Procedure Duration Time 0 hours 11 minutes 23 seconds Findings: The perianal and digital rectal examinations were normal. Four sessile polyps were found in the splenic flexure and hepatic flexure. The polyps were 8 mm in size. These polyps were removed with a jumbo cold forceps. Resection and retrieval were complete. Verification of patient identification for the specimen was done. Estimated blood loss was minimal. A few small and large-mouthed diverticula were found in the recto-sigmoid colon, sigmoid colon and descending colon. The exam was otherwise without abnormality on direct and retroflexion views. Impression: - Four 8 mm polyps at the splenic flexure and at the hepatic flexure, removed with a jumbo cold forceps. Resected and retrieved. - Diverticulosis in the recto-sigmoid colon, in the sigmoid colon and in the descending colon. - The examination was otherwise normal on direct and retroflexion views. Recommendation: - Discharge patient to home. - Resume previous diet. - Continue present medications. - Await pathology results. - Repeat colonoscopy in 5 years for surveillance. Procedure Code(s): --- Professional --- 04646, Colonoscopy, flexible; with biopsy, single or multiple CPT copyright 2021 [employer]. All rights reserved. The codes documented in this report are preliminary and upon campus receptionist review may be revised to meet current compliance requirements. Marcelo Epps DO 01/29/2025 9:45:59 AM This report has been signed electronically. Number of Addenda: 0 Note Initiated On: 01/29/2025 9:21 AM
--- NOTE | 2025-01-29 09:47 | PCM.POST.ANE ---
Anesthesia: Postop Eval I Current Vital Signs Temperature: 97.4 F Pulse Rate: 58 Blood Pressure: 105/61 Respiratory Rate: 18 Pulse Ox: 95 Assessment Airway patent: Yes Spontaneous unlabored respirations: Yes nausea: No Vomiting: No Anesthesia Complication: No Fluid Hydration Crystalloid volume administer (ml): 10 Total IV fluid infused: 10 Progress Note Anesthesia document: Postop Eval 1 completed: Yes
--- NOTE | 2025-01-29 10:08 | POSTOPAN2_ITS ---
Anesthesia Postop Eval I Sum Postop Eval Completion status Anesthesia document: Postop Eval 1 completed: Yes Anesthesia Postop Eval I Summary Anesthesia Postop Eval I Summary: Anesthesia Postop Eval I: Assessment Summary Airway patent Yes 01/29/25 09:47 [email or web address] [email or web address] Spontaneous unlabored Yes 01/29/25 09:47 BARREL BURNER.[email or web address] respirations Mental status nausea No 01/29/25 09:47 BARREL BURNER.[email or web address] Vomiting No 01/29/25 09:47 BARREL BURNER.[email or web address] Anesthesia Postop Eval I: Fluid Summary Crystalloid volume administer 10 01/29/25 09:47 BARREL BURNER.[email or web address] (ml) Colloids volume administered ( ml) Blood Product volume administered (ml) Total IV fluid infused 10 01/29/25 09:47 BARREL BURNER.[email or web address] Anesthesia Postop Eval I: Summary Notes Anesthesia Complication No 01/29/25 09:47 BARREL [email or web address].CSIR Anesthesia Complication Comment: Post-operative progress note Anesthesia: Postop Eval II Evaluation Mental status: Awake Pain Level: 0 nausea: No Vomiting: No
--- NOTE | 2025-01-29 10:08 | PCM.POSTANE2 ---
Anesthesia Postop Eval I Sum Postop Eval Completion status Anesthesia document: Postop Eval 1 completed: Yes Anesthesia Postop Eval I Summary Anesthesia Postop Eval I Summary: Anesthesia Postop Eval I: Assessment Summary Airway patent Yes 01/29/25 09:47 TESTER ROCKET [email or web address] Spontaneous unlabored Yes 01/29/25 09:47 TESTER ROCKET [email or web address] respirations Mental status nausea No 01/29/25 09:47 TESTER ROCKET ENGINE.[email or web address] Vomiting No 01/29/25 09:47 TESTER ROCKET [email or web address] Anesthesia Postop Eval I: Fluid Summary Crystalloid volume administer 10 01/29/25 09:47 TESTER ROCKET [email or web address] (ml) Colloids volume administered ( ml) Blood Product volume administered (ml) Total IV fluid infused 10 01/29/25 09:47 TESTER ROCKET ENGINE.CSIR Anesthesia Postop Eval I: Summary Notes Anesthesia Complication No 01/29/25 09:47 TESTER ROCKET ENGINE.CSIR Anesthesia Complication Comment: Post-operative progress note Anesthesia: Postop Eval II Evaluation Mental status: Awake Pain Level: 0 nausea: No Vomiting: No
== END 2025-01-29 10:43 | disposition home or self-care (01) ==
LOC: EN 08:15 → AC 08:17
PROVIDERS: PCP Family Medicine; Referring Provider Family Medicine; Visit Provider Internal Medicine Gastroenterology
PROC: 0DJD8ZZ Inspection of Lower Intestinal Tract, Via Natural or Artificial Opening Endoscopic (ICD-10-PCS; CPT 45378; principal; 2025-01-29 09:10)
DX: Z12.11 Encounter for screening for malignant neoplasm of colon (principal); K63.5 Polyp of colon; K57.30 Diverticulosis of large intestine without perforation or abscess without bleeding; E78.00 Pure hypercholesterolemia, unspecified; I10 Essential (primary) hypertension; Z86.0100 Personal history of colon polyps, unspecified; Z79.899 Other long term (current) drug therapy
CPT/HCPCS: 45380; 88305; A4216; J2405

== ENCOUNTER 2025-10-10 09:06 | Outpatient (CLI) | payer OTHER, SELFPAY ==
--- OUTSIDE RECORDS SUMMARY | 2025-10-10 10:08 | XMS RPT_ITS | CCD ---
Author Organization [facility] Care Team Providers Care Film Historian Name Role Phone Gume Odonnell Referring Unavailable FriendMarcelo Consulting Unavailable FriendMarcelo Attending Unavailable Gume Odonnell Primary Care Unavailable Gume Odonnell Referring Unavailable Friend, Marcelo Attending Unavailable Gume Odonnell Primary Care Unavailable Gume Odonnell Primary Care Unavailable Gume Odonnell Attending Unavailable Gume Odonnell Primary Care Unavailable Margy Awan Attending Unavailable Belle IRELAND, Dr. Dunaway Primary Care Provider Dr. Gume Odonnell MD Attending Provider Margy Awan Attending Provider Unavailable Belle IRELAND, Dr. Dunaway Referring Provider Friend Dr. Marcelo GODOY Attending Provider Friend Dr. Marcelo GODOY Other Provider Medications Current Medications Medication Drug Class(es) Dates Sig (Normalized) Sig (Original) amLODIPine 10 mg oral tablet (1 source) Dihydropyridine Calcium Channel Abhinav Start: 12-06-2024 take 1 tablet by mouth once daily Amlodipine 10 mg tablet Active 10 mg PO daily December 06, 2024 1:00am cholecalciferol 0.05 mg oral capsule (2 sources) Vitamin D Start: 11-06-2019 take 1 capsule by mouth once daily Cholecalciferol (Vitamin D3) 2,000 UNIT capsule Active 2000 U PO DAILY November 06, 2019 1:00am Sanger-3 Fatty Acids (Super Sanger-3) 1,000 mg capsule (1 source) Start: 12-06-2024 take 3 capsules by mouth once daily Sanger-3 Fatty Acids (Super Sanger-3) 1,000 mg capsule Active 1000 mg PO daily December 06, 2024 1:00am psyllium 3400 mg powder for oral suspension (2 sources) Start: 10-17-2013 Psyllium Husk (Aspartame) (Metamucil) 1 PACKET powder in packet Active 1 NMA PO DAILY October 17, 2013 1:00am Start: 10-17-2013 Psyllium Husk (Aspartame) (Metamucil) 1 PACKET powder in packet Active 1 PACKET PO DAILY October 17, 2013 12:00am ramipril 5 mg oral capsule (2 sources) Angiotensin Converting Enzyme Inhibitor Start: 10-17-2013 take 1 capsule by mouth once daily Ramipril 5 MG capsule Active 5 mg PO DAILY October 17, 2013 1:00am rosuvastatin calcium 10 mg oral tablet (2 sources) HMG-CoA Reductase Inhibitor Start: 10-17-2013 take 1 tablet by mouth once daily Rosuvastatin 10 MG tablet Active 10 mg PO DAILY October 17, 2013 1:00am Problems Problem Classification Problem Date Documented Da te Episodic/Chronic Disorders of lipid metabolism (1 source) Hyperlipidemia, unspecified; Translations: [Hyperlipidemia, unspecified] Onset: 11-07-2024 Chronic Other and unspecified benign neoplasm (3 sources) History of polyp of colon; Translations: [Personal history of colonic polyps] 11-07-2019 Episodic Other screening for suspected conditions (not mental disorders or infectious disease) (4 sources) Patient encounter status; Translations: [Encounter for screening for malignant neoplasm of intestinal tract, unspecified] Onset: 02-07-2025 06-26-2019 Episodic Results Test Name Value Interpretation Reference Range Facility Colonoscopy Reporton 025 Colonoscopy Report [facility] Medical Records Department [address] [place] [address] Colonoscopy Report MR#: [id number] Acct: [id number] Name: TRAVIS CERNA YOCASTA Rep #: [id number] : 1955 69 From: Marcelo Friend PCP: Dr. Gume Odonnell MD Status:[facility] Patient Name: Travis Cerna Procedure Date: 01/29/2025 9:21 AM Date of : 1955 Age: 69 Procedure: Colonoscopy Indications: High risk colon cancer surveillance: Personal history of colonic polyps Providers: Marcelo Epps DO Referring MD: Marcelo Epps DO Medicines: Monitored Anesthesia Care Patient Profile: This is a 69 year old male. Refer to note in patient chart for documentation of history and physical. Last Colonoscopy: 5 years ago. Complications: No immediate complications. Procedure: Pre-Anesthesia Assessment: - Prior to the procedure, a History and Physical was performed, and patient medications and allergies were reviewed. The patient is competent. The risks and benefits of the procedure and the sedation options and risks were discussed with the patient. All questions were answered and informed consent was obtained. Patient identification and proposed procedure were verified by the physician in the pre-procedure area. Mental Status Examination: alert and oriented. Airway Examination: normal oropharyngeal airway and neck mobility. Respiratory Examination: clear to auscultation. CV Examination: normal. Prophylactic Antibiotics: The patient does not require prophylactic antibiotics. Prior Anticoagulants: The patient has taken no anticoagulant or antiplatelet agents except for NSAID medication. ASA Grade Assessment: II - A patient with mild systemic disease. After reviewing the risks and benefits, the patient was deemed in satisfactory condition to undergo the procedure. The anesthesia plan was to use monitored anesthesia care (MAC). Immediately prior to administration of medications, the patient was re-assessed for adequacy to receive sedatives. The heart rate, respiratory rate, oxygen saturations, blood pressure, adequacy of pulmonary ventilation, and response to care were monitored throughout the procedure. The physical status of the patient was re-assessed after the procedure. After I obtained informed consent, the scope was passed under direct vision. Throughout the procedure, the patient's blood pressure, pulse, and oxygen saturations were monitored continuously. The adult colonoscope was introduced through the anus and advanced to the cecum, identified by appendiceal orifice and ileocecal valve. The colonoscopy was performed without difficulty. The patient tolerated the procedure well. The quality of the bowel preparation was adequate. Scope In: 9:28:14 AM Scope Withdrawal Time 0 hours 4 minutes 59 seconds Scope Out: 9:39:37 AM Total Procedure Duration Time 0 hours 11 minutes 23 seconds Findings: The perianal and digital rectal examinations were normal. Four sessile polyps were found in the splenic flexure and hepatic flexure. The polyps were 8 mm in size. These polyps were removed with a jumbo cold forceps. Resection and retrieval were complete. Verification of patient identification for the specimen was done. Estimated blood loss was minimal. A few small and large-mouthed diverticula were found in the recto-sigmoid colon, sigmoid colon and descending colon. The exam was otherwise without abnormality on direct and retroflexion views. Impression: - Four 8 mm polyps at the splenic flexure and at the hepatic flexure, removed with a jumbo cold forceps. Resected and retrieved. - Diverticulosis in the recto-sigmoid colon, in the sigmoid colon and in the descending colon. - The examination was otherwise normal on direct and retroflexion views. Recommendation: - Discharge patient to home. - Resume previous diet. - Continue present medications. - Await pathology results. - Repeat colonoscopy in 5 years for surveillance. Procedure Code(s): --- Professional --- 45169, Colonoscopy, flexible; with biopsy, single or multiple CPT copyright 2021 [employer]. All rights reserved. The codes documented in this report are preliminary and upon business systems architect review may be revised to meet current compliance requirements. Marcelo Epps DO 01/29/2025 9:45:59 AM This report has been signed electronically. Number of Addenda: 0 Note Initiated On: 01/29/2025 9:21 AM 01/29/2546 Date Marcelo Epps DO Cosigner Signature: Date (if indicated) CC: Dr. Gume Odonnell MD; Marcelo Epps DO Date Dictated: 01/29/25920 Date Transcribed: Trim Attacher: MARY CARMEN Signed Normal [facility] MR/POSTOP.Aylin 01-29-2025 MR/POSTOP.[facility] Medical Records Department [address] [place] [address] Anesthesia Postop Eval I 01/29/25946 MR#: [id number] Acct: [id number] Name: TRAVIS CERNA Rep #: [id number] : 1955 69 From: Maria Del Rosario Lopez PCP: Dr. Gume Odonnell MD Status:REG SDC Y Race: C Location: [place] [address] Anesthesia: Postop Eval I Current Vital Signs Temperature: 97.4 F Pulse Rate: 58 Blood Pressure: 105/61 Respiratory Rate: 18 Pulse Ox: 95 Assessment Airway patent: Yes Spontaneous unlabored respirations: Yes nausea: No Vomiting: No Anesthesia Complication: No Fluid Hydration Crystalloid volume administer (ml): 10 Total IV fluid infused: 10 Progress Note Anesthesia document: Postop Eval 1 completed: Yes 01/29/25946 Date Maria Del Rosario Lopez Cosigner Signature: Date CC: Signed Normal [facility] MR/[id number] 01-29-2025 [facility] Medical Records Department [address] [place] [address] Anesthesia Postop Eval II 01/29/25 1008 MR#: [id number] Acct: [id number] Name: TRAVIS CERNA Rep #: [id number] : 1955 69 From: Jose Plascencia MD PCP: Dr. Gume Odonnell MD Status:REG SDC Y Race: C Location: [place] [address] Anesthesia Postop Eval I Sum Postop Eval Completion status Anesthesia document: Postop Eval 1 completed: Yes Anesthesia Postop Eval I Summary Anesthesia Postop Eval I Summary: Anesthesia Postop Eval I: Assessment Summary Airway patent Yes 01/29/25 09:47 FORESTRY LABORER.CSIR Spontaneous unlabored Yes 01/29/25 09:47 FORESTRY LABORER.CSIR respirations Mental status nausea No 01/29/25 09:47 FORESTRY LABORER.CSIR Vomiting No 01/29/25 09:47 FORESTRY LABORER.CSIR Anesthesia Postop Eval I: Fluid Summary Crystalloid volume administer 10 25 09:47 FORESTRY LABORER.CSIR (ml) Colloids volume administered ( ml) Blood Product volume administered (ml) Total IV fluid infused 01/29/25 09:47 FORESTRY LABORER.CSIR Anesthesia Postop Eval I: Summary Notes Anesthesia Complication No 01/29/25 09:47 FORESTRY LABORER.CSIR Anesthesia Complication Comment: Post-operative progress note Anesthesia: Postop Eval II Evaluation Mental status: Awake Pain Level: 0 nausea: No Vomiting: No 01/29/25 1008 Date Jose Pierce Signature: Date CC: Signed Normal [facility] Surgery Specimen Level Lizzy 01-29-2025 Surgery Specimen Level IV Patient Age/Sex Location Account Attending Physician TRAVIS CERNA 69/M EN [id number] Marcelo Epps DO Specimen: [id number] Received: 01/29/25 Status: ANJEL Vences Num: [id number] Spec Type: EGD BIOPSY Subm Dr: Marcelo Epps, DO HEADER OPERATION: Colonoscopy with biopsy PRE-OP DIAGNOSIS: Personal history of colonic polyps TISSUE SUBMITTED: A- Splenic flexure polyp biopsy, B- Hepatic flexure polyp biopsy MICROSCOPIC DIAGNOSIS A: COLON POLYP AT SPLENIC FLEXURE, BIOPSY: * Tubular adenoma. B: COLON POLYP AT HEPATIC FLEXURE, BIOPSY: * Tubular adenoma. MICROSCOPIC DESCRIPTION Slides are reviewed. GROSS DESCRIPTION A. Received in fixative is one container labeled with the patient's name and designated Splenic flexure polyp biopsy. The specimen consists of multiple irregular fragments of light pitts soft tissue that in aggregate measure 1.4 x 0.4 x 0.2 cm. The specimen is totally submitted in one cassette. B. Received in fixative is one container labeled with the patient's name and designated Hepatic flexure polyp biopsy. The specimen consists of two irregular fragments of light pitts soft tissue that in aggregate measure 0.8 x 0.3 x 0.2 cm. The specimen is totally submitted in one cassette. MS/mr 01/29/2025 CPT:38788c7 Patient Age/Sex Location Account Attending Physician TRAVIS CERNA 69/M EN [id number] Marcelo Epps DO Signed (signatur e on file) Dr. Malu Mckeon MD 01/31/25 1528 Normal [facility] Comment on above: Performed By: #### P SUIV #### [facility] [place], [place], [id number] Albumin to globulin ratioOrd ered By: Gume Odonnell on 10-09-2024 Albumin/Globulin [Mass ratio] 1.3 {ratio} 0.9-2.4 [facility] Bilirubin, totalOrdered By: Gume Odonnell on 10-09-2024 Bilirubin [Mass/Vol] 0.80 mg/dL 0.20-1.00 [facility] Comment on above: For patients on eltr ombopag therapy, use of Dimension [place] TBIL is not recommended. Blood urea nitrogen (BUN)/cr eatinine ratioOrdered By: Gume Odonnell on 10-09-2024 Urea nitrogen/Creatinine [Mass ratio] 16.5 mg/mg 10-20 [facility] Carbon dioxide measurementOr dered By: Gume Odonnell on 10-09-2024 CO2 [Moles/Vol] 24.0 mmol/L 21.0-32.0 [facility] Chloride measurementOrdered By: Gume Odonnell on 10-09-2024 Chloride [Moles/Vol] 105 mmol/L 98-107 [facility] Comprehensive Metabolic Prof ilon 10-09-2024 Albumin [Mass/Vol] 4.2 g/dL Normal 3.2-5.0 [facility] Comment on above: Order Comment: Order Date: 05/11/24 Order Info: [id number] - CMP Order Info: [id number] - LIPID Order Info: [id number] - PSA Performed By: #### L 500.4100, L501.9910, L500.4050 #### [facility] [address] [place], [address] Albumin/Globulin [Mass ratio] 1.3 {ratio} Normal 0.9-2.4 [facility] Comment on above: Order Comment: Order Date: 05/11/24 Order Info: [id number] - CMP Order Info: [id number] - LIPID Order Info: [id number] - PSA Performed By: #### L 500.4100, L501.9910, L500.4050 #### [facility] [address] [place], [address] ALK P 88 U/L Normal 45-117 [facility] Comment on above: Order Comment: Order Date: 05/11/24 Order Info: [id number] - CMP Order Info: [id number] - LIPID Order Info: [id number] - PSA Performed By: #### L 500.4100, L501.9910, L500.4050 #### [facility] [address] [place], [address] ALT [Catalytic activity/Vol] 24 U/L Normal 16-61 [facility] Comment on above: Order Comment: Order Date: 05/11/24 Order Info: 785-1 - CMP Order Info: [id number] - LIPID Order Info: 285-1 - PSA Performed By: #### L 500.4100, L501.9910, L500.4050 #### [facility] [address] [place], [address] AST [Catalytic activity/Vol] 18 U/L Normal 15-37 [facility] Comment on above: Order Comment: Order Date: 05/11/24 Order Info: [id number] - CMP Order Info: [id number] - LIPID Order Info: [id number] - PSA Performed By: #### L 500.4100, L501.9910, L500.4050 #### [facility] [address] [place], [address] Bilirubin [Mass/Vol] 0.80 mg/dL Normal 0.20-1.00 [facility] Comment on above: Order Comment: Order Date: 05/11/24 Order Info: 785-11 - CMP Order Info: [id number] - LIPID Order Info: [id number] - PSA Result Comment: For patients on eltrombopag therapy, use of Dimension [place] TBIL is not recommended. Performed By: #### L 500.4100, L501.9910, L500.4050 #### [facility] [address] [place], [address] BUN/CRE 16.5 RATIO Normal 10-20 [facility] Comment on above: Order Comment: Order Date: 05/11/24 Order Info: 07 - CMP Order Info: [id number] - LIPID Order Info: 285-1 - PSA Performed By: #### L 500.4100, L501.9910, L500.4050 #### [facility] [address] [place], [address] CA,Total 9.3 mg/dL Normal 8.5-10.1 [facility] Comment on above: Order Comment: Order Date: 05/11/24 Order Info: 785-1 - CMP Order Info: [id number] - LIPID Order Info: 1 - PSA Performed By: #### L 500.4100, L501.9910, L500.4050 #### [facility] [address] [place], [address] Chloride [Moles/Vol] 105 mmol/L Normal 98-107 [facility] Comment on above: Order Comment: Order Date: 05/11/24 Order Info: 785- - CMP Order Info: - LIPID Order Info: [id number] - PSA Performed By: #### L 500.4100, L501.9910, L500.4050 #### [facility] [address] [place], [address] CO2 [Moles/Vol] 24.0 mmol/L Normal 21.0-32.0 [facility] Comment on above: Order Comment: Order Date: 05/11/24 Order Info: 785-11 - CMP Order Info: [id number] - LIPID Order Info: [id number] - PSA Performed By: #### L 500.4100, L501.9910, L500.4050 #### [facility] [address] [place], [address] Creatinine [Mass/Vol] 1.03 mg/dL Normal 0.70-1.30 [facility] Comment on above: Order Comment: Order Date: 05/11/24 Order Info: 07-1 - CMP Order Info: [id number] - LIPID Order Info: [id number] - PSA Result Comment: The validity of the calculated GFR GFRAA in patients over 70 years has not been determined. Clinical correlation is essential. Performed By: #### L 500.4100, L501.9910, L500.4050 #### [facility] [address] [place], [address] EST GFR - AA 92 mL/min Normal >60 [facility] Comment on above: Order Comment: Order Date: 05/11/24 Order Info: 785-11 - CMP Order Info: - LIPID Order Info: [id number] - PSA Result Comment: Afri can [place] GFR Calc Performed By: #### L 500.4100, L501.9910, L500.4050 #### [facility] [address] [place], [address] GAP 8 Normal 5-15 [facility] Comment on above: Order Comment: Order Date: 05/11/24 Order Info: 785-11 - CMP Order Info: - LIPID Order Info: [id number] - PSA Performed By: #### L 500.4100, L501.9910, L500.4050 #### [facility] [address] [place], [address] GFR/1.73 sq M.predicted among non-blacks MDRD (S/P/Bld) [Vol rate/Area] 76 mL/min/{1.73_m2} Normal >60 [facility] Comment on above: Order Comment: Order Date: 05/11/24 Order Info: 785-11 - CMP Order Info: - LIPID Order Info: [id number] - PSA Result Comment: Non- GFR Calc Performed By: #### L 500.4100, L501.9910, L500.4050 #### [facility] [address] [place], [address] Globulin (S) [Mass/Vol] 3.3 g/dL Normal 2.2-4.2 [facility] Comment on above: Order Comment: Order Date: 05/11/24 Order Info: 785-11 - CMP Order Info: [id number] - LIPID Order Info: [id number] - PSA Performed By: #### L 500.4100, L501.9910, L500.4050 #### [facility] [address] [place], [address] Glucose [Mass/Vol] 76 mg/dL Normal 74-106 [facility] Comment on above: Order Comment: Order Date: 05/11/24 Order Info: 785-11 - CMP Order Info: [id number] - LIPID Order Info: 285-1 - PSA Performed By: #### L 500.4100, L501.9910, L500.4050 #### [facility] [address] [place], [address] Potassium [Moles/Vol] 4.1 mmol/L Normal 3.5-5.1 [facility] Comment on above: Order Comment: Order Date: 05/11/24 Order Info: 785-11 - CMP Order Info: [id number] - LIPID Order Info: [id number] - PSA Performed By: #### L 500.4100, L501.9910, L500.4050 #### [facility] [address] [place], [address] Sodium [Moles/Vol] 137 mmol/L Normal 136-145 [facility] Comment on above: Order Comment: Order Date: 05/11/24 Order Info: 785-11 - CMP Order Info: [id number] - LIPID Order Info: [id number] - PSA Performed By: #### L 500.4100, L501.9910, L500.4050 #### [facility] [address] [place], [address] T PROT 7.5 g/dL Normal 6.4-8.2 [facility] Comment on above: Order Comment: Order Date: 05/11/24 Order Info: 785-11 - CMP Order Info: [id number] - LIPID Order Info: [id number] - PSA Performed By: #### L 500.4100, L501.9910, L500.4050 #### [facility] [address] [place], [address] Urea nitrogen [Mass/Vol] 17 mg/dL Normal 7-18 [facility] Comment on above: Order Comment: Order Date: 05/11/24 Order Info: 0786-1 - CMP Order Info: [id number] - LIPID Order Info: [id number] - PSA Performed By: #### L 500.4100, L501.9910, L500.4050 #### [facility] [address] [place], [place], [address] Estimated glomerular filtrat ion rate (GFR) AmericanOrdered By: Gume Odonnell on 10-09-2024 Estimated GFR (MDRD) Amer 92 mL/min >60 [facility] Comment on above: GFR Calc Glomerular filtration rate ( GFR) estimationOrdered By: Gume Odonnell on 10-09-2024 Estimated GFR (MDRD) Non-Af Amer 76 mL/min >60 [facility] Comment on above: Non- GFR Calc Glucose measurementOrdered B y: Gume Odonnell on 10-09-2024 Glucose [Mass/Vol] 76 mg/dL 74-106 [facility] High density lipoprotein (HD L) measurementOrdered By: Gume Odonnell on 10-09-2024 Cholesterol in HDL [Mass/Vol] 42 mg/dL >40 [facility] Comment on above: The drugs N-Acetylcy steine and Metamizole may falsely depress this assay. Reference Range HDL <40 mg/dL Low HDL Cholesterol HDL >or= 60 mg/dL High HDL Cholesterol Laboratory - Chemistry and C hemistry - challengeOrdered By: Gume Odonnell on 10-09-2024 AST [Catalytic activity/Vol] 18 U/L 15-37 [facility] Lipid Profileon 10-09-2024 Cholesterol [Mass/Vol] 159 mg/dL Normal 200 [facility] Comment on above: Order Comment: Order Date: 05/11/24 Order Info: 0786-1 - CMP Order Info: [id number] - LIPID Order Info: [id number] - PSA Result Comment: <200 mg/dL Desirable 200-240 mg/dL Borderline >240 mg/dL High Risk Performed By: #### L 500.4100, L501.9910, L500.4050 #### [facility] [address] [place], [address] Cholesterol in HDL [Mass/Vol] 42 mg/dL Normal [facility] Comment on above: Order Comment: Order Date: 05/11/24 Order Info: 07 - CMP Order Info: [id number] - LIPID Order Info: [id number] - PSA Result Comment: The drugs N-Acetylcysteine and Metamizole may falsely depress this assay. Reference Range HDL <40 mg/dL Low HDL Cholesterol HDL >or= 60 mg/dL High HDL Cholesterol Performed By: #### L 500.4100, L501.9910, L500.4050 #### [facility] [address] [place], [address] Cholesterol in LDL [Mass/Vol] 100 mg/dL Normal 0-130 [facility] Comment on above: Order Comment: Order Date: 05/11/24 Order Info: 07 - CMP Order Info: [id number] - LIPID Order Info: [id number] - PSA Performed By: #### L 500.4100, L501.9910, L500.4050 #### [facility] [address] [place], [address] Cholesterol in VLDL [Mass/Vol] 17 mg/dL Normal 5-40 [facility] Comment on above: Order Comment: Order Date: 05/11/24 Order Info: 0786 - CMP Order Info: [id number] - LIPID Order Info: [id number] - PSA Performed By: #### L 500.4100, L501.9910, L500.4050 #### [facility] [address] [place], [address] Triglyceride [Mass/Vol] 87 mg/dL Normal [facility] Comment on above: Order Comment: Order Date: 05/11/24 Order Info: [id number]- - CMP Order Info: [id number] - LIPID Order Info: [id number] - PSA Result Comment: The drugs N-Acetylcysteine and Metamizole may falsely depress this assay. Serum Triglycerides Reference Interval Normal <150 mg/dL Borderline high 150 - 199 mg/dL High 200 - 499 mg/dL Very High > or = 500 mg/dL Performed By: #### L 500.4100, L501.9910, L500.4050 #### [facility] [address] [place], [place], [address] Low density lipoprotein (LDL ) cholesterol measurementOrdered By: Gume Odonnell on 10-09-2024 Cholesterol in LDL [Mass/Vol] 100 mg/dL 0-130 [facility] PSA,Total - Annual Screenon 10-09-2024 PSA,TOT SCREEN 1.46 ng/mL Normal 0.00-4.00 [facility] Comment on above: Order Comment: Order Date: 05/11/24 Order Info: 0786-1 - CMP Order Info: [id number] - LIPID Order Info: [id number] - PSA Result Comment: This test was performed using the TPSA assay method for the [employer]xim chemistry system. Values obtained with different assay methods cannot be used interchangably. When changing PSA assays in the course of monitoring a patient, additional sequential testing should be carried out to confirm baseline values. Performed By: #### L 500.4100, L501.9910, L500.4050 #### [facility] [address] [place], [address] Potassium measurementOrdered By: Gume Odonnell on 10-09-2024 Potassium [Moles/Vol] 4.1 mmol/L 3.5-5.1 [facility] Screening prostate specific antigen (PSA) measurementOrdered By: Gume Odonnell on 10-09-2024 Prostate Specific Antigen Screen 1.46 ng/mL 0.00-4.00 [facility] Comment on above: This test was perfor med using the TPSA assay method for the[employer]maxim chemistry system. Values obtained with differentassay methods cannot be used interchangably.When changing PSA assays in the course of monitoring apatient, additional sequential testing should be carriedout to confirm baseline values. Serum anion gap measurementO rdered By: Gume Odonnell on 10-09-2024 Anion gap [Moles/Vol] 8 mmol/L 5-15 [facility] Serum globulin measurementOr dered By: Gume Odonnell on 10-09-2024 Globulin (S) [Mass/Vol] 3.3 g/dL 2.2-4.2 [facility] Serum or plasma alanine cabrera otransferase (ALT) measurementOrdered By: Gume Odonnell on 10-09-2024 ALT [Catalytic activity/Vol] 24 U/L 16-61 [facility] Serum or plasma albumin machelle urement (mass/volume)Ordered By: Gume Odonnell on 10-09-2024 Albumin [Mass/Vol] 4.2 g/dL 3.2-5.0 [facility] Serum or plasma alkaline patricia sphatase measurementOrdered By: Gume Odonnell on 10-09-2024 ALP [Catalytic activity/Vol] 88 U/L 45-117 [facility] Serum or plasma calcium machelle urement (mass/volume)Ordered By: Gume Odonnell on 10-09-2024 Calcium [Mass/Vol] 9.3 mg/dL 8.5-10.1 [facility] Serum or plasma cholesterol measurement (mass/volume)Ordered By: Gume Odonnell on 10-09-2024 Cholesterol [Mass/Vol] 159 mg/dL <200 [facility] Comment on above: <200 mg/dL Desirable 200-240 mg/dL Borderline >240 mg/dL High Risk Serum or plasma creatinine m easurement (mass/volume)Ordered By: Gume Odonnell on 10-09-2024 Creatinine [Mass/Vol] 1.03 mg/dL 0.70-1.30 [facility] Comment on above: The validity of the calculated GFR & GFRAA in patients over 70 years has not been determined. Clinical correlation is essential. Serum or plasma urea nitroge n measurement (mass/volume)Ordered By: Gume Odonnell on 10-09-2024 Urea nitrogen [Mass/Vol] 17 mg/dL 7-18 [facility] Sodium levelOrdered By: Rj Odonnell on 10-09-2024 Sodium [Moles/Vol] 137 mmol/L 136-145 [facility] Total proteinOrdered By: Bert Odonnell on 10-09-2024 Protein [Mass/Vol] 7.5 g/dL 6.4-8.2 [facility] Triglycerides measurementOrd ered By: Gume Odonnell on 10-09-2024 Triglyceride [Mass/Vol] 87 mg/dL <199 [facility] Comment on above: The drugs N-Acetylcy steine and Metamizole may falsely depress this assay.Serum Triglycerides Reference Interval Normal <150 mg/dL Borderline high 150 - 199 mg/dL High 200 - 499 mg/dL Very High > or = 500 mg/dL Very low density lipoprotein (VLDL) cholesterol measurementOrdered By: Gume Odonnell on 10-09-2024 VLDL Cholesterol 17 mg/dL 5-40 [facility] Basophil percentageOrdered B y: Venkata Odonnell on 10-05-2023 Bilirubin [Mass/Vol] 0.70 mg/dL 0.20-1.00 [facility] Comment on above: For patients on eltr ombopag therapy, use of Dimension [place] TBIL is not recommended. Chloride [Moles/Vol] 104 mmol/L 98-107 [facility] Cholesterol [Mass/Vol] 160 mg/dL <200 [facility] Comment on above: <200 mg/dL Desirable 200-240 mg/dL Borderline >240 mg/dL High Risk Glucose [Mass/Vol] 86 mg/dL 74-106 [facility] Potassium [Moles/Vol] 3.9 mmol/L 3.5-5.1 [facility] Protein [Mass/Vol] 7.3 g/dL 6.4-8.2 [facility] Sodium [Moles/Vol] 137 mmol/L 136-145 [facility] Triglyceride [Mass/Vol] 74 mg/dL <199 [facility] Comment on above: The drugs N-Acetylcy steine and Metamizole may falsely depress this assay.Serum Triglycerides Reference Interval Normal <150 mg/dL Borderline high 150 - 199 mg/dL High 200 - 499 mg/dL Very High > or = 500 mg/dL Laboratory - Chemistry and C hemistry - challengeOrdered By: Venkata Odonnell on 10-05-2023 ALP [Catalytic activity/Vol] 80 U/L 45-117 [facility] ALT [Catalytic activity/Vol] 27 U/L 16-61 [facility] CO2 [Moles/Vol] 23.0 mmol/L 21.0-32.0 [facility] Globulin (S) [Mass/Vol] 3.3 g/dL 2.2-4.2 [facility] Urea nitrogen/Creatinine [Mass ratio] 14.3 mg/mg 10-20 [facility] No Panel InformationOrdered By: Venkata Odonnell on 10-05-2023 Estimated GFR (MDRD) Amer 91 mL/min >60 [facility] Comment on above: GFR Calc Estimated GFR (MDRD) Non-Af Amer 75 mL/min >60 [facility] Comment on above: Non- GFR Calc Prostate Specific Antigen Screen 1.35 ng/mL 0.00-4.00 [facility] Comment on above: This test was perfor med using the TPSA assay method for [employer] chemistry system. Values obtained with differentassay methods cannot be used interchangably.When changing PSA assays in the course of monitoring apatient, additional sequential testing should be carriedout to confirm baseline values. Vitamin D 25-Hydroxy 34.9 ng/mL [facility] Comment on above: Vitamin D 25(OH) Sta tus Range Deficiency <20 ng/mL (50nmol/L) Insufficiency 20 - 30 ng/mL (50 - 75 nmol/L) Sufficiency 30 - 100 ng/mL (75 - 250 nmol/L) Toxicity >100 ng/mL (>250 nmol/L) Serum or plasma albumin machelle urement (mass/volume)Ordered By: Venkata Odonnell on 10-05-2023 Albumin [Mass/Vol] 4.0 g/dL 3.2-5.0 [facility] Serum or plasma albumin/glob ulin mass ratioOrdered By: Venkata Odonnell on 10-05-2023 Albumin/Globulin [Mass ratio] 1.2 {ratio} 0.9-2.4 [facility] Serum or plasma calcium machelle urement (mass/volume)Ordered By: Venkata Odonnell on 10-05-2023 Calcium [Mass/Vol] 8.6 mg/dL 8.5-10.1 [facility] Serum or plasma cholesterol in HDL measurement (mass/volume)Ordered By: Venkata Odonnell on 10-05-2023 Cholesterol in HDL [Mass/Vol] 43 mg/dL >40 [facility] Comment on above: The drugs N-Acetylcy steine and Metamizole may falsely depress this assay. Reference Range HDL <40 mg/dL Low HDL Cholesterol HDL >or= 60 mg/dL High HDL Cholesterol Serum or plasma cholesterol in VLDL measurement (mass/volume)Ordered By: Venkata Odonnell on 10-05-2023 Cholesterol in VLDL [Mass/Vol] 15 mg/dL 5-40 [facility] Serum or plasma creatinine m easurement (mass/volume)Ordered By: Venkata Odonnell on 10-05-2023 Creatinine [Mass/Vol] 1.05 mg/dL 0.70-1.30 [facility] Comment on above: The validity of the calculated GFR & GFRAA in patients over 70 years has not been determined. Clinical correlation is essential. Serum or plasma low density lipoprotein (LDL) cholesterol measurement (mass/volume)Ordered By: Venkata Odonnell on 10-05-2023 Cholesterol in LDL [Mass/Vol] 102 mg/dL 0-130 [facility] Serum or plasma urea nitroge n measurement (mass/volume)Ordered By: Venkata Odonnell on 10-05-2023 Urea nitrogen [Mass/Vol] 15 mg/dL 7-18 [facility] Thin prep Papanicolaou smear with manual screeningOrdered By: Venkata Odonnell on 10-05-2023 Thin prep Papanicolaou smear with manual screening 23 U/L 15-37 [facility] Thin prep Papanicolaou smear with manual screening 10 5-15 [facility] Vital Signs Date Time Vital Sign Value Performing Clinician Farshad sherman 01-29-2025 10:05-0400 Body temperature 99 [degF] Dr. Gume Odonnell MD Work Phone: [facility] 01-29-2025 10:05-0400 Diastolic blood pressure 76 mm[Hg] Dr. Gume Odonnell MD Work Phone: [facility] 01-29-2025 10:05-0400 Heart rate 18 /min Dr. Gume Odonnell MD Work Phone: [facility] 01-29-2025 10:05-0400 Respiratory rate 16 /min Dr. Gume Odonnell MD Work Phone: [facility] 01-29-2025 10:05-0400 SaO2% (BldA) [Mass fraction] 96 % Dr. Gume Odonnell MD Work Phone: [facility] 01-29-2025 10:05-0400 Systolic blood pressure 121 mm[Hg] Dr. Gume Odonnell MD Work Phone: [facility] 01-29-2025 08:32-0400 Body height 172.[address] Gume Odonnell MD Work Phone: [facility] 01-29-2025 08:32-0400 Body mass index (BMI) [Ratio] 28.5 kg/m2 Dr. Gume Odonnell MD Work Phone: [facility] 01-29-2025 08:32-0400 Body weight [address] Gume Odonnell MD Work Phone: [facility] 12-06-2024 12:55-0500 Body mass index (BMI) [Ratio] 26.6 kg/m2 Dr. Gume Odonnell MD Work Phone: [facility] 12-06-2024 12:55-0500 Body weight 79.[address] Gume Odonnell MD Work Phone: [facility] Encounters Encounter Date Encounter Type Care Provider Facility Start: 01-29-2025 Non-patient / Non-visit Marcelo Stone nd, DO -[facility] Start: 01-29-2025 End: 01-29-2025 Admission to same day surgery center Marcelo Epps DO -Endoscopy Work Phone: Start: 01-29-2025 End: 01-29-2025 ambulatory Gume Odonnell Facility:[facility] Start: 12-06-2024 Non-patient / Non-visit Dr. Gosia Odonnell MD Work Phone: [facility] Work Phone: Start: 12-06-2024 ambulatory Gume Odonnell Faci lity:[facility] Start: 10-09-2024 End: 10-09-[address] Gume Odonnell MD -Laboratory, [facility] Start: 10-09-2024 End: 10-09-2024 ambulatory Gume Odonnell Facility:[facility] Start: 10-05-2023 End: 10-05-2023 ambulatory [facility] Work Phone: Start: 10-05-2023 End: 10-05-2023 [facility] Date Procedure Procedure Detail Performing Clinician Start: 01-29-[address] Herrera Odonnell MD Work Phone: Plan of Treatment Date Care Activity Detail Author Start: 01-29-2025 Patient discharge [facility] Colonoscopy [facility] Patient referral [facility] Work Phone: Payers Date Payer Category Payer Self-pay [id number] 2024 Unknown [id number] Unknown [id number] Unknown [id number] Unknown [id number] Unknown [id number] Social History Date Type Detail Facility [facility] Start: 11-06-2019 Non-smoker [facility] Start: 1955 Sex Assigned At Male [facility] Start: 01-26-2025 [facility] (finding[facility] Start: 01-29-2025 Sex Male (finding) [facility] Goals Date Patient Goal Desired Activity /State Mental Status Date Assessment Result Facility 01-29-2025 Cognitive function Level Of Consciousness Sedated [facility] Work Phone: 01-29-2025 Cognitive function Voice/Name [facility] Work Phone: Clinical Notes 01-29-2025 Note Date & Type Note Facility 01-29-2025 Consult note [facility] 01-29-2025 Consult note Note Date/Time January 29, 2025 8:39am [facility] Medical Records Department [address] [place] [address] Pre-Anesthesia Evaluation 01/29/25 0838 MR#: [id number] Acct: [id number] Name: TRAVIS CERNA Rep #:[id number] : 1955 69 From: Jose Plascencia MD PCP: Dr. Gume Odonnell MD Status :REG SDC Y Race: C Location: [place] [address] ASA Classification* ASA Classification ASA Classification: 2 Assessment & Plan Anesthesia* Anesthesia Assessment Anesthesia Assessment: Discussed sedation and/or anesthesia options, risks, benefits, and alternatives with patient/parents/legal guardian/POA. Questions invited. The patient/parents/legal guardian/POA seems to understand and agrees to proceedwith anesthesia plan. Reviewed the physical assessment, medical history, allergy history and patient home medications list prior to surgery/procedure/anesthetic and documented any changes. Performed airway and anesthesia risk assessments. Anesthesia Type Anesthesia Type: MAC Anesthesia Focused Assessment* Temperature: 98.0 F Pulse Rate: 65 Blood Pressure: 144/77 Respiratory Rate: 18 Pulse Ox: 99 Airway Assessment Mouth opens: >3 cm Mallampati Score: II Focused Labs Anesthesia Preop lab: CBC WBC 5.9 K/mm3 (4.4-11.0) 06/15/19 07:09 06/15/19 RBC 4.83 M/mm3 (4.6-6.2) 06/15/19 07:09 06/15/19 Hgb 15.1 g/dL (13.0-16.5) 06/15/19 07:09 06/15/19 Hct 44.3 % (40-54) 06/15/19 07:09 06/15/19 Plt Count 207 K/mm3 (150-450) 06/15/19 07:09 06/15/19 CHEMISTRY Potassium 4.1 mmol/L (3.5-5.1) 10/09/24 11:37 10/09/24 Sodium 137 mmol/L (136-145) 10/09/24 11:37 10/09/24 BUN 17 mg/dL (7-18) 10/09/24 11:37 10/09/24 Creatinine 1.03 mg/dL (0.70-1.30) 10/09/24 11:37 10/09/24 Glucose 76 mg/dL (74-106) 10/09/24 11:37 10/09/24 COAG Pre-Assessment Diagnosis/Proposed Procedure Planned Operative Procedure(s): COLONOSCOPY Anesthesia History Anesthesia History - government program manager: Anesthesia History - government program manager Hx Hospitalization No 01/26/25 09:05 Any Problems With Anesthesia No 01/26/25 09:05 Cholinesterase deficiency No 01/26/25 09:05 You/Your Family Experience No 01/26/25 09:05 fever (hyperthermia) with Relationship Recent Exposure to Contagious No 01/29/25 08:32 Disease Does patient have nerve No 01/26/25 09:05 stimulator Patient instructed to have device shut off --Does patient have Pacemaker No 01/29/25 08:32 or ICD? When Was Last Pacemaker Check QUESTION #4 FULL TEXT: You/Your Family Experience fever (hyperthermia) with Anesthesia Last Oral Intake Last Oral intake: Last Oral Intake NPO since 03:30 01/29/25 08:32 Meds taken in AM with sips of water? Meds patient instructed to take am of surgery PONV PONV - government program manager: PONV - government program manager Female No 01/26/25 09:05 HX of Motion Sickness No 01/26/25 09:05 HX of N/V After Surgery No 01/26/25 09:05 Non-Smoker Yes 01/26/25 09:05 Duration of Surgery greater No 01/26/25 09:05 than 60 minutes Number of Risk Factors 1 01/26/25 09:05 PONV Score Low Risk 01/26/25 09:05 Height & Weight Height & Weight: Anesthesia: Height & Weight Height 5 ft 8 in 01/29/25 08:32 Weight: 85 kg 01/29/25 08:32 Body Mass Index (BMI) 28.5 01/29/25 08:32 Respiratory Assessment Respiratory Assessment - government program manager: Respiratory Tract Infection Hx - government program manager Hx Respiratory Tract Infection No 01/26/25 09:05 STOP Sleep Apnea STOP Sleep Apnea - government program manager: STOP Sleep Apnea - government program manager Hx Hypertension Yes 01/26/25 09:05 Hx Sleep Apnea No 01/26/25 09:05 CPAP No 11/07/19 09:03 BIPAP No 11/06/19 10:53 Do you snore loudly (louder No 01/26/25 09:05 than talking or can be heard Do you often feel tired/ No 01/26/25 09:05 fatigued/ sleepy during daytime? Has anyone observed you stop No 01/26/25 09:05 breathing during sleep? STOP Results Negative 01/26/25 09:05 QUESTION #5 FULL TEXT : Do you snore loudly (louder than talking or can be heard through closed doors)? Tobacco Use History Tobacco Use History - government program manager: Tobacco Use History - government program manager Tobacco Use Smoking Status Never smoker 01/26/25 09:05 Hx Tobacco Use No 01/26/25 09:05 Years Smoking Packs Smoked per Day Smoking Cessation Date was within the last 15 years Hx Smoking Cessation Date Hx Smoking Cessation Counseling Hematologic Medial History Hematologic Hx - government program manager: Hematologic Medical Hx - tiler Hx of Blood Transfusion No 01/26/25 09:05 Hx of Transfusion in last 3 No 01/26/25 09:05 Months Date of Last Transfusion (if within last 3 months) Ever experience any problems No 01/26/25 09:05 with transfusion(s)? Specify any problems Hx of Preganancy in last 3 N/A 01/26/25 09:05 Months Nurse Filling Out Transfusion VLEHMAN 01/26/25 09:05 & Questions: Date: 01/26/25 01/26/25 09:05 Time: 09:13 01/26/25 09:05 Patient unable to answer at this time (ie. confused, unrespo /Reproduction History /Reproductive History - government program manager: /Reproductive Hx- government program manager Hx Now Gestational Age (in weeks): EDC: Hx Hx Para Hx Section SAB PFSH Medical History Wears glasses Alcohol use High cholesterol Non-smoker Chronic cough History of edema HTN (hypertension) Home Medications ?Medication ?Instructions ?Recorded ?Last Taken ?Type psyllium husk (aspartame) 3.4 gram 1 packet PO DAILY 1 12/17/12 01/26/25 History oral powder packet (Metamucil Fiber Singles) ramipril 5 mg capsule 5 mg PO DAILY 10/17/1301/28 History rosuvastatin 10 mg tablet 10 mg PO DAILY 10/17/1308/16 History cholecalciferol (vitamin D3) 50 2,000 unit PO DAILY 01/28/25 History mcg (2,000 unit) capsule amlodipine 10 mg tablet 10 mg PO QDAY 12/06/2401/29 History omega-3 fatty acids 1,000 mg 1,000 mg PO QDAY 12/06/24 01/26/25 History capsule (Super Sanger-3) Allergy/AdvReac Type Severity Reaction Status Date / Time No Known Allergies Allergy Verified 01/29/25 08:31 Surgical History History of carpal tunnel release of both wrists History of arthroscopic knee surgery Hx of colonoscopy Social History household members: spouse current occupational status: employed Smoking Status: Never smoker substance use type: does not use Review of Systems (Anesthesia) ROS Narrative System reviewed and no additional complaints, except as documented. 01/29/25 0839 <Electronically signed by Jose Plascencia MD > Date _ Jose Plascencia MD Cosigner Signature: Date CC: ~ Signed [facility] Work Phone: 1(273) 437-480803-10-2025 History and physical note Author Marcelo Epps [facility] Note Date/Time January 29, 2025 8:3 0am [facility] Medical Records Department [address] [place] [address] History & Physical Exam 01/29/25828 MR#: [id number] Acct: [id number] Name: TRAVIS CERNA Rep #:[id number] : 1955 69 From: Marcelo Epps DO PCP: Dr. Gume Odonnell MD Status [facility] Location: [place] [address] HPI - General General Date of Admission: 01/29/25 Date of Service: 01/29/25 Chief Complaint: Screening colonoscopy HPI Narrative TRAVIS CERNA, is a 69 M who presents today for surveillance colonoscopy. He has a personal history of polyps. His last colonoscopy was in 2019. [facility] Medical History Wears glasses Alcohol use High cholesterol Non-smoker Chronic cough History of edema HTN (hypertension) Home Medications ?Medication ?Instructions ?Recorded ?Last Taken ?Type psyllium husk (aspartame) 3.4 gram 1 packet PO DAILY 1 12/17/12 Unknown History oral powder packet (Metamucil Fiber Singles) ramipril 5 mg capsule 5 mg PO DAILY 10/17/1311/07 History rosuvastatin 10 mg tablet 10 mg PO DAILY 10/17/13 Unkn own History cholecalciferol (vitamin D3) 50 2,000 unit PO DAILY Unknown History mcg (2,000 unit) capsule amlodipine 10 mg tablet 10 mg PO QDAY 12/06/24 Unkno wn History omega-3 fatty acids 1,000 mg 1,000 mg PO QDAY 12/06/24 Unknown History capsule (Super Sanger-3) Allergy/AdvReac Type Severity Reaction Status Date / Time No Known Allergies Allergy Verified 12/06/24 12:49 Surgical History History of carpal tunnel release of both wrists History of arthroscopic knee surgery Hx of colonoscopy Social History household members: spouse current occupational status: employed Smoking Status: Never smoker substance use type: does not use ROS Constitutional Constitutional: Denies fatigue, fever(s), poor appetite, weight gain or weight loss Gastrointestinal Gastrointestinal: Denies belching, bloating, change in bowel habits, change in stool character, chewing difficulty, coffee ground emesis, constipation, cramping, diarrhea, dyspepsia, dysphagia, early satiety, excessive flatus, fecalincontinence, heartburn, hematemesis, hematochezia, hemorrhoids, loose stools, melena, nausea, odynophagia, rectal bleeding, tenesmus, vomiting or weight changes Physical Exam Const alert, oriented x3, no apparent distress and healthy appearing General Appearance: cooperative GI normal to inspection, nondistended, normoactive bowel sounds, soft to palpation,non-tender and non-distended Percussion: normal to percussion Rectal Exam: deferred Assessment & Plan Assessment/Plan (1) Personal history of colonic polyps: PLAN: He was explained alternatives, risk and benefits given understanding bleeding, infection, sepsis, perforation, need emergent urgent . He will have an ASA of 3. 01/29/25 0830 <Electronically signed by Marcelo Epps DO> Cosigner Signature (if applicable): CC: Dr. Gume Odonnell MD; Marcelo Epps DO~ Signed [facility] Work Phone: 1(219) 406-579903-10-2025 Evaluation note* Diagnosis Onset Date Resolution Status Admit Date Personal history of colonic polyps acute January 29, 2025 8:14am [facility] Work Phone: 1(812) 441-655503-10-2025 Consult note [facility] Medical Records Department [address] [place] [address] Anesthesia Postop Eval I 01/29/25 0947 MR#: [id number] Acct: [id number] Name: TRAVIS CERNA Rep #:[id number] : 1955 69 From: Maria Del Rosario Lopez PCP: Dr. Gume Odonnell MD Status :REG SDC Y Race: C Location: [place] [address] Anesthesia: Postop Eval I Current Vital Signs Temperature: 97.4 F Pulse Rate: 58 Blood Pressure: 105/61 Respiratory Rate: 18 Pulse Ox: 95 Assessment Airway patent: Yes Spontaneous unlabored respirations: Yes nausea: No Vomiting: No Anesthesia Complication: No Fluid Hydration Crystalloid volume administer (ml): 10 Total IV fluid infused: 10 Progress Note Anesthesia document: Postop Eval 1 completed: Yes 01/29/25 0947 a> Date _ Maria Del Rosario Pierce Signature: Date CC: ~ Signed [facility]03-10-2025 Procedure note [facility] Medical Records Department [address] [place] [address] Colonoscopy Report MR#: [id number] Acct: [id number] Name: TRAVIS CERNA Rep #:[id number] : 1955 69 From: Marcelo Epps DO PCP: Dr. Gume Odonnell MD Status :[facility] Patient Name: Travis Cerna Procedure Date: 01/29/2025 9:21 AM Date of : 1955 Age: 69 Procedure: Colonoscopy Indications: High risk colon cancer surveillance: Personal history of colonic polyps Providers: Marcelo Epps DO Referring MD: Marcelo Epps DO Medicines: Monitored Anesthesia Care Patient Profile: This is a 69 year old male. Refer to note in patient chart for documentation of history and physical. Last Colonoscopy: 5 years ago. Complications: No immediate complications. Procedure: Pre-Anesthesia Assessment: - Prior to the procedure, a History and Physical was performed, and patient medications and allergies were reviewed. The patient is competent. The risks and benefits of the procedure and the sedation options and risks were discussed with the patient. All questions were answered and informed consent was obtained. Patient identification and proposed procedure were verified by the physician in the pre-procedure area. Mental Status Examination: alert and oriented. Airway Examination: normal oropharyngeal airway and neck mobility. Respiratory Examination: clear to auscultation. CV Examination: normal. Prophylactic Antibiotics: The patient does not require prophylactic antibiotics. Prior Anticoagulants: The patient has taken no anticoagulant or antiplatelet agents except for NSAID medication. ASA Grade Assessment: II - A patient with mild systemic disease. After reviewing the risks and benefits, the patient was deemed in satisfactory condition to undergo the procedure. The anesthesia plan was to use monitored anesthesia care (MAC). Immediately prior to administration of medications, the patient was re-assessed for adequacy to receive sedatives. The heart rate, respiratory rate, oxygen saturations, blood pressure, adequacy of pulmonary ventilation, and response to care were monitored throughout the procedure. The physical status of the patient was re-assessed after the procedure. After I obtained informed consent, the scope was passed under direct vision. Throughout the procedure, the patient's blood pressure, pulse, and oxygen saturations were monitored continuously. The adult colonoscope was introduced through the anus and advanced to the cecum, identified by appendiceal orifice and ileocecal valve. The colonoscopy was performed without difficulty. The patient tolerated the procedure well. The quality of the bowel preparation was adequate. Scope In: 9:28:14 AM Scope Withdrawal Time 0 hours 4 minutes 59 seconds Scope Out: 9:39:37 AM Total Procedure Duration Time 0 hours 11 minutes 23 seconds Findings: The perianal and digital rectal examinations were normal. Four sessile polyps were found in the splenic flexure and hepatic flexure. The polyps were 8 mm in size. These polyps were removed with a jumbo cold forceps. Resection and retrieval were complete. Verification of patient identification for the specimen was done. Estimated blood loss was minimal. A few small and large-mouthed diverticula were found in the recto-sigmoid colon, sigmoid colon and descending colon. The exam was otherwise without abnormality on direct and retroflexion views. Impression: - Four 8 mm polyps at the splenic flexure and at the hepatic flexure, removed with a jumbo cold forceps. Resected and retrieved. - Diverticulosis in the recto-sigmoid colon, in the sigmoid colon and in the descending colon. - The examination was otherwise normal on direct and retroflexion views. Recommendation: - Discharge patient to home. - Resume previous diet. - Continue present medications. - Await pathology results. - Repeat colonoscopy in 5 years for surveillance. Procedure Code(s): --- Professional --- 94024, Colonoscopy, flexible; with biopsy, single or multiple CPT copyright 2021 [employer]. All rights reserved. The codes documented in this report are preliminary and upon business systems architect review may be revised to meet current compliance requirements. Marcelo Epps DO 01/29/2025 9:45:59 AM This report has been signed electronically. Number of Addenda: 0 Note Initiated On: 01/29/2025 9:21 AM 01/29/25945 Date _ Marcelo Epps DO Cosigner Signature: Date (if indicated) CC: Dr. Gume Odonnell MD; Marcelo Epps DO ~ Date Dictated: 01/29/25920 Date Transcribed: Trim Attacher: RF Signed [facility]03-10-2025 Procedure note [facility] Medical Records Department [address] [place] [address] Operative Report - CC Letter MR#: [id number] Acct: [id number] Name: TRAVIS CERNA Rep #:[id number] : 1955 69 From: Marcelo Epps DO PCP: Dr. Gume Odonnell MD Status :REG [facility] 01/29/2025 Venkata Odonnell [address] [place] [address] Re : Colonoscopy procedure for Travis Cerna Dear Dr. Odonnell This procedure was performed on Wednesday, January 29, 2025. My impressions and recommendations are as follows: Impressions : - Four 8 mm polyps at the splenic flexure and at the hepatic flexure, removed with a jumbo cold forceps. Resected and retrieved. - Diverticulosis in the recto-sigmoid colon, in the sigmoid colon and in the descending colon. - The examination was otherwise normal on direct and retroflexion views. Recommendations : - Discharge patient to home. - Resume previous diet. - Continue present medications. - Await pathology results. - Repeat colonoscopy in 5 years for surveillance. My findings are described in the full procedure note, which is enclosed. If I can be of further assistance, please feel free to contact me at . Sincerely, Marcelo Epps DO 01/29/2025 9:45:59 AM This report has been signed electronically. 01/29/25945 Date _ Marcelo Supriya GODOY Cosigner Signature: Date (if indicated) CC: Dr. Gume Odonnell MD; Marcelo Epps DO ~ Date Dictated: 01/29/25920 Date Transcribed: Trim Attacher: RF Signed [facility]03-10-2025 Consult note [facility] Medical Records Department [address] [place] [address] Pre-Anesthesia Evaluation 01/29/25837 MR#: [id number] Acct: [id number] Name: TRAVIS CERNA Rep #:[id number] : 1955 69 From: Jose Plascencia MD PCP: Dr. Gume Odonnell MD Status :REG [facility] Y Race: C Location: [place] [address] ASA Classification* ASA Classification ASA Classification: 2 Assessment & Plan Anesthesia* Anesthesia Assessment Anesthesia Assessment: Discussed sedation and/or anesthesia options, risks, benefits, and alternatives with patient/parents/legal guardian/POA. Questions invited. The patient/parents/legal guardian/POA seems to understand and agrees to proceedwith anesthesia plan. Reviewed the physical assessment, medical history, allergy history and patient home medications list prior to surgery/procedure/anesthetic and documented any changes. Performed airway and anesthesia risk assessments. Anesthesia Type Anesthesia Type: MAC Anesthesia Focused Assessment* Temperature: 98.0 F Pulse Rate: 65 Blood Pressure: 144/77 Respiratory Rate: 18 Pulse Ox: 99 Airway Assessment Mouth opens: >3 cm Mallampati Score: II Focused Labs Anesthesia Preop lab: CBC WBC 5.9 K/mm3 (4.4-11.0) 06/15/19 07:09 06/15/19 RBC 4.83 M/mm3 (4.6-6.2) 06/15/19 07:09 06/15/19 Hgb 15.1 g/dL (13.0-16.5) 06/15/19 07:09 06/15/19 Hct 44.3 % (40-54) 06/15/19 07:09 06/15/19 Plt Count 207 K/mm3 (150-450) 06/15/19 07:09 06/15/19 CHEMISTRY Potassium 4.1 mmol/L (3.5-5.1) 10/09/24 11:37 10/09/24 Sodium 137 mmol/L (136-145) 10/09/24 11:37 10/09/24 BUN 17 mg/dL (7-18) 10/09/24 11:37 10/09/24 Creatinine 1.03 mg/dL (0.70-1.30) 10/09/24 11:37 10/09/24 Glucose 76 mg/dL (74-106) 10/09/24 11:37 10/09/24 COAG Pre-Assessment Diagnosis/Proposed Procedure Planned Operative Procedure(s): COLONOSCOPY Anesthesia History Anesthesia History - government program manager: Anesthesia History - government program manager Hx Hospitalization No 01/26/25 09:05 Any Problems With Anesthesia No 01/26/25 09:05 Cholinesterase deficiency No 01/26/25 09:05 You/Your Family Experience No 01/26/25 09:05 fever (hyperthermia) with Relationship Recent Exposure to Contagious No 01/29/25 08:32 Disease Does patient have nerve No 01/26/25 09:05 stimulator Patient instructed to have device shut off --Does patient have Pacemaker No 01/29/25 08:32 or ICD? When Was Last Pacemaker Check QUESTION #4 FULL TEXT: You/Your Family Experience fever (hyperthermia) with Anesthesia Last Oral Intake Last Oral intake: Last Oral Intake NPO since 03:30 01/29/25 08:32 Meds taken in AM with sips of water? Meds patient instructed to take am of surgery PONV PONV - government program manager: PONV - government program manager Female No 01/26/25 09:05 HX of Motion Sickness No 01/26/25 09:05 HX of N/V After Surgery No 01/26/25 09:05 Non-Smoker Yes 01/26/25 09:05 Duration of Surgery greater No 01/26/25 09:05 than 60 minutes Number of Risk Factors 1 01/26/25 09:05 PONV Score Low Risk 01/26/25 09:05 Height & Weight Height & Weight: Anesthesia: Height & Weight Height 5 ft 8 in 01/29/25 08:32 Weight: 85 kg 01/29/25 08:32 Body Mass Index (BMI) 28.5 01/29/25 08:32 Respiratory Assessment Respiratory Assessment - government program manager: Respiratory Tract Infection Hx - government program manager Hx Respiratory Tract Infection No 01/26/25 09:05 STOP Sleep Apnea STOP Sleep Apnea - government program manager: STOP Sleep Apnea - government program manager Hx Hypertension Yes 01/26/25 09:05 Hx Sleep Apnea No 01/26/25 09:05 CPAP No 11/07/19 09:03 BIPAP No 11/06/19 10:53 Do you snore loudly (louder No 01/26/25 09:05 than talking or can be heard Do you often feel tired/ No 01/26/25 09:05 fatigued/ sleepy during daytime? Has anyone observed you stop No 01/26/25 09:05 breathing during sleep? STOP Results Negative 01/26/25 09:05 QUESTION #5 FULL TEXT : Do you snore loudly (louder than talking or can be heard through closeddoors)? Tobacco Use History Tobacco Use History - government program manager: Tobacco Use History - government program manager Tobacco Use Smoking Status Never smoker 01/26/25 09:05 Hx Tobacco Use No 01/26/25 09:05 Years Smoking Packs Smoked per Day Smoking Cessation Date was within the last 15 years Hx Smoking Cessation Date Hx Smoking Cessation Counseling Hematologic Medial History Hematologic Hx - government program manager: Hematologic Medical Hx - tiler Hx of Blood Transfusion No 01/26/25 09:05 Hx of Transfusion in last 3 No 01/26/25 09:05 Months Date of Last Transfusion (if within last 3 months) Ever experience any problems No 01/26/25 09:05 with transfusion(s)? Specify any problems Hx of Preganancy in last 3 N/A 01/26/25 09:05 Months Nurse Filling Out Transfusion [facility] 01/26/25 09:05 & Questions: Date: 01/26/25 01/26/25 09:05 Time: 09:13 01/26/25 09:05 Patient unable to answer at this time (ie. confused, unrespo /Reproduction History /Reproductive History - government program manager: /Reproductive Hx- government program manager Hx Now Gestational Age (in weeks): EDC: Hx Hx Para Hx Section SAB [facility] Medical History Wears glasses Alcohol use High cholesterol Non-smoker Chronic cough History of edema HTN (hypertension) Home Medications ?Medication ?Instructions ?Recorded ?Last Taken ?Type psyllium husk (aspartame) 3.4 gram 1 packet PO DAILY 1 12/17/12 01/26/25 History oral powder packet (Metamucil Fiber Singles) ramipril 5 mg capsule 5 mg PO DAILY 10/17/1301/28 History rosuvastatin 10 mg tablet 10 mg PO DAILY 10/17/1308/16 History cholecalciferol (vitamin D3) 50 2,000 unit PO DAILY 01/28/25 History mcg (2,000 unit) capsule amlodipine 10 mg tablet 10 mg PO QDAY 12/06/2401/29 History omega-3 fatty acids 1,000 mg 1,000 mg PO QDAY 12/06/24 01/26/25 History capsule (Super Sanger-3) Allergy/AdvReac Type Severity Reaction Status Date / Time No Known Allergies Allergy Verified 01/29/25 08:31 Surgical History History of carpal tunnel release of both wrists History of arthroscopic knee surgery Hx of colonoscopy Social History household members: spouse current occupational status: employed Smoking Status: Never smoker substance use type: does not use Review of Systems (Anesthesia) ROS Narrative System reviewed and no additional complaints, except as documented. 01/29/25 0839 > Date _ Jose Pierce Signature: Date CC: ~ Signed [facility]03-10-2025 History and physical note [facility] Medical Records Department [address] [place] [address] History & Physical Exam 01/29/25828 MR#: [id number] Acct: [id number] Name: TRAVIS CERNA Rep #:[id number] : 1955 69 From: Marcelo Epps DO PCP: Dr. Gume Odonnell MD Status :[facility] Location: [place] [address] HPI - General General Date of Admission: 01/29/25 Date of Service: 01/29/25 Chief Complaint: Screening colonoscopy HPI Narrative TRAVIS CERNA, is a 69 M who presents today for surveillance colonoscopy. He has a personal history of polyps. His last colonoscopy was in 2019. [facility] Medical History Wears glasses Alcohol use High cholesterol Non-smoker Chronic cough History of edema HTN (hypertension) Home Medications ?Medication ?Instructions ?Recorded ?Last Taken ?Type psyllium husk (aspartame) 3.4 gram 1 packet PO DAILY 1 12/17/12 Unknown History oral powder packet (Metamucil Fiber Singles) ramipril 5 mg capsule 5 mg PO DAILY 10/17/1311/07 History rosuvastatin 10 mg tablet 10 mg PO DAILY 10/17/13 Unkn own History cholecalciferol (vitamin D3) 50 2,000 unit PO DAILY Unknown History mcg (2,000 unit) capsule amlodipine 10 mg tablet 10 mg PO QDAY 12/06/24 Unkno wn History omega-3 fatty acids 1,000 mg 1,000 mg PO QDAY 12/06/24 Unknown History capsule (Super Sanger-3) Allergy/AdvReac Type Severity Reaction Status Date / Time No Known Allergies Allergy Verified 12/06/24 12:49 Surgical History History of carpal tunnel release of both wrists History of arthroscopic knee surgery Hx of colonoscopy Social History household members: spouse current occupational status: employed Smoking Status: Never smoker substance use type: does not use ROS Constitutional Constitutional: Denies fatigue, fever(s), poor appetite, weight gain or weight loss Gastrointestinal Gastrointestinal: Denies belching, bloating, change in bowel habits, change in stool character, chewing difficulty, coffee ground emesis, constipation, cramping, diarrhea, dyspepsia, dysphagia, earlysatiety, excessive flatus, fecalincontinence, heartburn, hematemesis, hematochezia, hemorrhoids, loose stools, melena, nausea, odynophagia, rectal bleeding, tenesmus, vomiting or weight changes Physical Exam Const alert, oriented x3, no apparent distress and healthy appearing General Appearance: cooperative GI normal to inspection, nondistended, normoactive bowel sounds, soft to palpation,non-tender and non-distended Percussion: normal to percussion Rectal Exam: deferred Assessment & Plan Assessment/Plan (1) Personal history of colonic polyps: PLAN: He was explained alternatives, risk and benefits given understanding bleeding, infection, sepsis, perforation, need emergent urgent . He will have an ASA of 3. 01/29/25 0830 Cosigner Signature (if applicable): CC: Dr. Gume Odonnell MD; Marcelo Epps DO~ Signed [facility]03-10-2025 [facility] Medical Records Department [address] [place] [address] History Physical Exam 01/29/25 0829 MR#: [id number] Acct: [id number] Name: TRAVIS CERNA Rep #: [id number] : 1955 69 From: Marcelo Epps DO PCP: Dr. Gume Odonnell MD Status:[facility] Location: [place] [address] HPI - General General Date of Admission: 01/29/25 Date of Service: 01/29/25 Chief Complaint: Screening colonoscopy HPI Narrative TRAVIS CERNA, is a 69 M who presents today for surveillance colonoscopy. He has a personal history of polyps. His last colonoscopy was in 2019. [facility] Medical History Wears glasses Alcohol use High cholesterol Non-smoker Chronic cough History of edema HTN (hypertension) Home Medications ???Medication ???Instructions ???Recorded ???Last Taken ???Type psyllium husk (aspartame) 3.4 gram 1 packet PO DAILY 10/17/13 Unkno wn History oral powder packet (Metamucil Fiber Singles) ramipril 5 mg capsule 5 mg PO DAILY 10/17/13 11/07/19 Hi story rosuvastatin 10 mg tablet 10 mg PO DAILY 10/17/13 Unknown Hi story cholecalciferol (vitamin D3) 50 2,000 unit PO DAILY 11/06/19 Unkno wn History mcg (2,000 unit) capsule amlodipine 10 mg tablet 10 mg PO QDAY 12/06/24 Unknown His tory omega-3 fatty acids 1,000 mg 1,000 mg PO QDAY 12/06/24 Unknown History capsule (Super Sanger-3) Allergy/AdvReac Type Severity Reaction Status Date / Time No Known Allergies Allergy Verified 12/06/24 12:49 Surgical History History of carpal tunnel release of both wrists History of arthroscopic knee surgery Hx of colonoscopy Social History household members: spouse current occupational status: employed Smoking Status: Never smoker substance use type: does not use ROS Constitutional Constitutional: Denies fatigue, fever(s), poor appetite, weight gain or weight loss Gastrointestinal Gastrointestinal: Denies belching, bloating, change in bowel habits, change in stool character, chewing difficulty, coffee ground emesis, constipation, cramping, diarrhea, dyspepsia, dysphagia, early satiety, excessive flatus, fecal incontinence, heartburn, hematemesis, hematochezia, hemorrhoids, loose stools, melena, nausea, odynophagia, rectal bleeding, tenesmus, vomiting or weight changes Physical Exam Const alert, oriented x3, no apparent distress and healthy appearing General Appearance: cooperative GI normal to inspection, nondistended, normoactive bowel sounds, soft to palpation, non-tender and non- distended Percussion: normal to percussion Rectal Exam: deferred Assessment Plan Assessment/Plan (1) Personal history of colonic polyps: PLAN: He was explained alternatives, risk and benefits given understanding bleeding, infection, sepsis, perforation, need emergent urgent . He will have an ASA of 3. 01/29/25 0830 Cosigner Signature (if applicable): CC: Dr. Gume Odonnell MD; Marcelo Epps, [facility]ult [facility] Author Maria Del Rosario Lopez [facility] Note Date/Time January 29, 2025 9:4 7am [facility] Medical Records Department [address] [place] [address] Anesthesia Postop Eval I 01/29/25946 MR#: [id number] Acct: [id number] Name: TRAVIS CERNA Rep #:[id number] : 1955 69 From: Maria Del Rosario Lopez PCP: Dr. Gume Odonnell MD Status :REG [facility] Y Race: C Location: [place] [address] Anesthesia: Postop Eval I Current Vital Signs Temperature: 97.4 F Pulse Rate: 58 Blood Pressure: 105/61 Respiratory Rate: 18 Pulse Ox: 95 Assessment Airway patent: Yes Spontaneous unlabored respirations: Yes nausea: No Vomiting: No Anesthesia Complication: No Fluid Hydration Crystalloid volume administer (ml): 10 Total IV fluid infused: 10 Progress Note Anesthesia document: Postop Eval 1 completed: Yes 01/29/25946 <Electronically signed by Maria Del Rosario celaya> Date _ Maria Del Rosario Lopez Cosigner Signature: Date CC: ~ Signed [facility] Work Phone: Consult note Author Jose Plascencia [facility] Note Date/Time January 29, 2025 10: 43am [facility] Medical Records Department [address] [place] [address] Anesthesia Postop Eval II 01/29/25 1008 MR#: [id number] Acct: [id number] Name: TRAVIS CERNA Rep #:[id number] : 1955 69 From: Jose Plascencia MD PCP: Dr. Gume Odonnell MD Status :REG [facility] Y Race: C Location: [place] [address] Anesthesia Postop Eval I Sum Postop Eval Completion status Anesthesia document: Postop Eval 1 completed: Yes Anesthesia Postop Eval I Summary Anesthesia Postop Eval I Summary: Anesthesia Postop Eval I: Assessment Summary Airway patent Yes 01/29/25 09:47 [email or web address] [email or web address] Spontaneous unlabored Yes 01/29/25 09:47 FORESTRY [email or web address].CSIR respirations Mental status nausea No 01/29/25 09:47 FORESTRY [email or web address].CSIR Vomiting No 01/29/25 09:47 FORESTRY LABORER.CSIR Anesthesia Postop Eval I: Fluid Summary Crystalloid volume administer 10 01/29/25 09:47 FORESTRY LABORER.CSIR (ml) Colloids volume administered ( ml) Blood Product volume administered (ml) Total IV fluid infused 10 01/29/25 09:47 FORESTRY LABORER.CSIR Anesthesia Postop Eval I: Summary Notes Anesthesia Complication No 01/29/25 09:47 FORESTRY LABORER.CSIR Anesthesia Complication Comment: Post-operative progress note Anesthesia: Postop Eval II Evaluation Mental status: Awake Pain Level: 0 nausea: No Vomiting: No 01/29/25 1008 <Electronically signed by Jose Plascencia MD > Date _ Jose Plascencia MD Cosigner Signature: Date CC: ~ Signed [facility] Work Phone: Evaluation noteNo assessment information available [facility] Work Phone: Reason for referral (narrative)No reason for referral information availableWMercy Health [facility] Work Phone: Advance Directives Advance Directive Response Recorded Date/ Time Advance Directives No September 12:32pm Living Will No November 06 019 10:53am Power of General Road Foreman No November 06, 2019 10:53am Advance Directive Response Recorded Date/ Time Living Will Yes January 26, 2025 10:05am Power of General Road Foreman Yes January 26 10:05am Name of Medical Power of General Road Foreman January 26, 2025 10:05am Advance Directives No September 1:32pm Summary Purpose Family History No Family History Records Found Chief Complaint and Reason for Visit Chief Complaint Admit Date Amb Documentation December 06, 2024 1 2:44pm Reason for Visit Admit Date Personal history of colonic polyps January 29, 2025 8:14am Additional Source Comments Care Teams (unrecognized sec tion and content) Team Status: Active Member Role Status Dates Dr. Venkata Odonnell MD Family Provider Active Dr. Venkata Odonnell MD Primary Care Provider Activ e Team Status: Inactive Member Role Status Dates Dr. Venkata Odonnell MD Primary Care Provider, Atte nding Provider Active Team Status: Active Member Role Status Dates Dr. Gume Odonnell MD Primary Care Provider Acti ve Team Status: Inactive Member Role Status Dates Dr. Gume Odonnell MD Primary Care Provider Acti ve Start: October 09, 2024 End: October 09, 2024 Dr. Gume Odonnell MD Attending Provider Active Start: October 09, 2024 End: October 09, 2024 Team Status: Active Member Role Status Dates Dr. Gume Odonnell MD Primary Care Provider Acti ve Start: December 06, 2024 Margy Awan Attending Provider Active Start: Milind porter 2024 Team Status: Inactive Member Role Status Dates Dr. Gume Odonnell MD Primary Care Provider Acti ve Start: January 29, 2025 End: January 29, 2025 Dr. Gume Odonnell MD Referring Provider Active Start: January 29, 2025 End: January 29, 2025 Dr. Marcelo Epps DO Attending Provider Active Start: January 29, 2025 End: January 29, 2025 Team Status: Active Member Role Status Dates Dr. Gume Odonnell MD Primary Care Provider Acti ve Start: January 29, 2025 Dr. Gume Odonnell MD Referring Provider Active Start: January 29, 2025 Dr. Marcelo Epps DO Attending Provider Active Start: January 29, 2025 Dr. Marcelo Epps DO Other Provider Active St art: January 29, 2025 Goals (unrecognized section and content) Goals may be documented in a n alternate section (unrecognized sect ion and content) No Status Records Found INFORMATION SOURCE (unrecogn ized section and content) DATE CREATED AUTHOR 02/09/2025 [facility] FOR RECORDS PERTAINING TO PATIENTS WHO ARE OR HAVE BEEN ENROLLED IN A CHEMICAL DEPENDENCY/SUBSTANCEABUSE PROGRAM, SOME INFORMATION MAY BE OMITTED. This clinical summary was aggregated from multiple sources. Caution should be exercised in using it in the provision of clinical care. This summary normalizes information from multiple sources, and as a consequence, information in this document may materially change the coding, format and clinical context of patient data. In addition, data may be omitted in some cases. CLINICAL DECISIONS SHOULD BE BASED ON THE PRIMARY CLINICAL RECORDS. [employer] provides no warranty or guarantee of the accuracy or completeness of information in this document.
[2025-10-10 11:18] LABS: AST(SGOT) 22 U/L (<=37); Alanine Aminotransfer ALT/SGPT 22 U/L (<=46); Albumin, Serum 4.6 g/dL (3.4-4.8); Alkaline Phosphatase 82 U/L (40-129); Anion Gap 11 (5-15); BUN 21 mg/dL (4-19); BUN/Creat Ratio 17.3 RATIO (10-20); Calcium,Total 9.7 mg/dL (7.6-11.0); Carbon Dioxide 25.3 mmol/L (21.0-32.0); Chloride 101 mmol/L (98-108); Cholesterol 159 mg/dL (<=200); Globulin 2.8 g/dL (2.2-4.2); Glucose 95 mg/dL (70-99); Low Density Lipoprotein Calc. 102 mg/dL; PSA,Total - Annual Screen 1.00 ng/mL (0.02-4.00); Potassium 4.9 mmol/L (3.3-5.1); Triglycerides 111 mg/dL; Very Low Density Lipoprotein 22 mg/dL (5-40); Vitamin D,25 Hydroxy 39.1 ng/mL (30-100); cholesterol:hdl ratio screen 4.33
== END 2025-10-10 23:59 | disposition home or self-care (01) ==
LOC: MFPLAB 09:08
PROVIDERS: PCP Family Medicine; Visit Provider Family Medicine
DX: N40.0 Benign prostatic hyperplasia without lower urinary tract symptoms (principal); E78.5 Hyperlipidemia, unspecified; I10 Essential (primary) hypertension
CPT/HCPCS: 36415; 80053; 80061; 82306; 84153; G0103